=== PATIENT | male | born 1950 | race Caucasian/White ===

== ENCOUNTER 2023-08-28 09:10 | Outpatient (CLI) | payer OTHER, SELFPAY ==
--- OUTSIDE RECORDS SUMMARY | 2023-08-28 09:15 | XMS_ITS | Encounter Summary ---
Author Name [facility] Organization [facility] Address [address] [place] [address] Support Name Relationship Address Phone JASPREET STEELE Next of Kin [address] [place] [address] JASPREET STEELE Emergency Contact [address] [place] [address] Insurance Providers: All historical and current Section Date Range: From patient's date of to the date document was created. This section includes the names of all active insurance providers for the patient. Insurance Provider Type of Coverage Plan Name Start of Policy Coverage End of Policy Coverage Group Number Member ID Insurance Provider's Telephone Number Policy Joe's Name Patient's Relationship to Policy Joe [employer] [facility] (WNR) MEDICARE ADVANTAGE [facility] (R) May 12, 2021 [id number] TRAY STEELE PATIENT MEDICA MCR (WNR) MEDICARE ADVANTAGE [facility] (WNR) May 12, 2018 [id number] [phone] TRAY STEELE PATIENT MEDICARE (WNR) MEDICARE (M) PART A Jul 10, 2013 PART A [id number] [phone] TRAY STEELE PATIENT MEDICARE (WNR) MEDICARE (M) PART B Jul 10, 2013 PART B [id number] [phone] TRAY STEELE PATIENT Selected Encounter This section includes the information on record at PA for the Encounter. Date/Time Encounter Type Encounter Description Reason Pro vider Source Jun 11, 2023 10:49 AM Outpatient Encounter COMMUNITY CARE CONSULT IHE Encounter Template Text not used by [facility] Plan of Treatment: Future Appointments (+ 6 months) and Future Tests (+/- 45 days) The Plan of Treatment section includes future care activities for the patient from all VA treatmentfacilities. This section includes future appointments and future orders which are active, pending or scheduled. Future Appointments This section includes appointments that were scheduled to occur 6 months from the date of the Encounter, up to a maximum of 20 appointments. The data comes from all [facility]. Appointment Date/Time Appointment Type Appointme nt Facility Name Aug 26, 2023 07:00 AM AMBULATORY - NONE [facility] Active, Pending, and Scheduled Orders This section includes a listing of several types of active, pending, and scheduled orders, including clinic medications orders, diagnostic test orders, procedure orders and consult orders; where the start date of the order is 45 days before the date of the Encounter or 45 days after the date of theEncounter. The data comes from all [facility]. Test Date/Time Test Type Test Details Facility Name May 20, 2023 11:12 AM Consult Order COMMUNITY CARE-COLONOSCOPY [facility] Cons [facility] HELEN GARCIA Lab Results: +/- 30 days of the encounter This section includes the Chemistry and Hematology Lab Results on record with PA for the patient. Radiology Reports and Pathology Reports are provided separately, in subsequent sections. Lab Results This section contains the Chemistry/Hematology Results that were resulted 30 days before or 30 daysafter the date of the Encounter. Date/Time Source Result Type Result - Unit Interpretation Reference Range Comment May 20, 2023 11:22 AM HELEN AGRCIA HEMOGLOBIN A1C Specimen Type: BLOOD Comment: Values obtained from A1C measurements can vary. For typical A1C assays, a reported value of 7.0 could actually be between 6.7 and 7.3 if measured by a reference method. A reported value of 9.0 could actually be between 8.7 and 9.3. Ref: http://www.ngsp .org/CAPdata.as p Ordering Provider: SHERYL NORIEGA Report Released Date/Time: May 20, 2023 11:17 AM Reporting Lab: [facility] [id number] Performing Lab: [facility] [id number] HEMOGLOBIN A1C 5.3 4.0-6.0 May 20, 2023 11:22 AM HELEN GARCIA BASIC METABOLIC PANEL+MG Specimen Type: PLASMA No comment entered. Ordering Provider: SHERYL NORIEGA Report Released Date/Time: May 20, 2023 11:17 AM Reporting Lab: [facility] [id number] Performing Lab: [facility] [id number] CREATININE 1.2 0.7-1.2 UREA NITROGEN 25 8-26 GLUCOSE 100 70-100 SODIUM 134 L 136-145 POTASSIUM 4.1 3.5-5.1 CHLORIDE 101 98-107 CO2 27 22-29 CALCIUM 9.1 8.4-10.2 MAGNESIUM 2.1 1.6-2.6 ANION GAP 6 5-15 .CREAT EGFR(CKD-EPI) 63 >60 Social History: Smoking Status (Most current) and Tobacco Use (All prior to encounter date) This section includes the most current, and the historical, smoking and tobacco- related health factors from the [place] facility where the Encounter took place. Current Smoking Status This section includes the most current smoking, or tobacco-related health factor, from the PA facility where the Encounter took place. Date/Time Current Smoking Status Comment Facil kaye Nov 29, 2019 09:36 AM VA-TOBACCO NEVER USED [facility] Encounter Notes: All associated encounter notes This section contains the clinical notes associated to the Encounter. Date/Time Encounter Note(s) Provider Source Jun 11, 2023 10:49 AM NONVA NOTE: LOCAL TITLE: COMMUNITY CARE PRE-AUTH LETTER (AUTOPRINT) STANDARD TITLE: NONVA NOTE DATE OF NOTE: JUN 11, 2023@10:49 ENTRY DATE: JUN 11, 2023@10:49:31 AUTHOR: RAFAT MUÑOZ COSIGNER: URGENCY: STATUS: COMPLETED May TRAY STEELE [address] [place] [address] Dear TRAY STEELE, Your PA provider has referred you to a provider within the community for care. Your medical care for GASTROENTEROLOGY has been authorized with the community care provider listed below. DO NOT REPORT TO THE [facility] Provider info: Care has been approved for the following vendor: Office name, address, and phone number: [employer] [address] [place] [phone] Please contact the identified provider to schedule your community appointment. If you need assistance with this appointment, please call your facility community care office [facility] at [phone] during the hours of 8:30AM - 3:00PM. Please follow up with your local [facility] community care office once this is scheduled. This step is needed to ensure your referral duration is maximized and the VA has accurate referral information for billing purposes. Authorization Number: [id number] Referral Issue Date: May Expiration Date: Nov (subject to change based on first appointment) If you are unable to schedule this appointment or the appointment is no longer needed, please contact the community provider above for notification/rescheduling and then call the [facility] at [phone] during the hours of 8:30AM - 3:00PM. If you need additional care/services not mentioned above or your authorization has and additional care is needed, please contact your primary care provider for a new referral. To review all care/service(s) approved under your referral, please go to the following link: [email or web address]([email or web address]) Co-Payments: If you are required to pay a VA co-payment, you will be billed by the PA for each authorized visit that you attend. However, you are NOT REQUIRED to make co-payments to a community provider. Thank you for the opportunity to serve you. Sincerely, [facility] Community Care (VACC) /katharina/ RAFAT MUÑOZ ADVANCED MSA Signed: 06/11/2023 10:50 RAFAT MUÑOZ [facility]
--- OUTSIDE RECORDS SUMMARY | 2023-08-28 09:15 | XMS_ITS | Encounter Summary ---
Author Name [employer] of Vetera Affairs Organization [facility] Affairs Address [address] [place] [address] Support Name Relationship Address Phone JASPREET STEELE [...] Name Patient's Relationship to Policy Joe HUMANA [facility] (WNR) MEDICARE ADVANTAGE [facility] ([facility]) May 12, 2021 [id number] TRAY STEELE PATIENT MEDICA [facility] (WNR) MEDICARE ADVANTAGE [facility] (R) May 12, 2018 [id number] TRAY STEELE PATIENT MEDICARE (WNR) MEDICARE (M) PART A Jul 10, 2013 PART A [id number] [phone] TRAY STEELE PATIENT MEDICARE (WNR) MEDICARE (M) PART B Jul 10, 2013 PART B [id number] [phone] TRAY STEELE PATIENT Selected Encounter This section includes the information on record at [facility] for the Encounter. Date/Time Encounter Type Encounter Description Reason Provider Source May 20, 2023 10:30 AM OFFICE O/P EST MOD 30 MIN PRIMARY CARE/MEDICINE ICD-10-CM C18.9 Malignant neoplasm of colon, unspecified SHERYL NORIEGA Encounter Template Text not used by [facility] Assessments - Encounter Diagnoses This section includes the primary and secondary diagnoses documented for the Encounter. Date/Time Primary/Secondary Diagnosis Diagnosis Name Provider Source May 23, 2023 10:39 AM PRIMARY Malignant neoplasm of colon, unspecified SHERYL NORIEGA [facility] May 23, 2023 10:39 AM SECONDARY Allergic rhinitis, unspecified GRANDIA,SHERYL [facility] May 23, 2023 10:39 AM SECONDARY Benign prostatic hyperplasia without lower urinry tract symp GRANDIA,SHERYL [facility] May 23, 2023 10:39 AM SECONDARY Essential (primary) hypertension IASHERYL [facility] May 23, 2023 10:39 AM SECONDARY Gastro-esophageal reflux disease without esophagitis IA,SHERYL [facility] May 23, 2023 10:39 AM SECONDARY Impaired fasting glucose IA,SHERYL [facility] May 23, 2023 10:39 AM SECONDARY Rheumatoid arthritis, unspecified GRANDIA,SHERYL [facility] May 23, 2023 10:39 AM SECONDARY Sleep apnea, unspecified GRANDIA,SHERYL [facility] May 23, 2023 10:39 AM SECONDARY Unspecified hearing loss, unspecified ear IA,SHERYL [facility] May 23, 2023 10:39 AM SECONDARY Unspecified macular degeneration IA,SHERYL [facility] Plan of Treatment: Future Appointments (+ 6 months) and Future Tests (+/- 45 days) The Plan of Treatment section includes future care activities for the patient from all [facility] treatmentfacilities. This section includes future appointments and future orders which are active, pending or scheduled. Future Appointments This section includes appointments that were scheduled to occur 6 months from the date of the Encounter, up to a maximum of 20 appointments. The data comes from all [facility] treatment facilities. Appointment Date/Time Appointment Type Appointme nt Facility Name Aug 26, 2023 07:00 AM AM[facility]ULATORY - [facility] Active, Pending, and Scheduled Orders This section includes a listing of several types of active, pending, and scheduled orders, including clinic medications orders, diagnostic test orders, procedure orders and consult orders; where the start date of the order is 45 days before the date of the Encounter or 45 days after the date of theEncounter. The data comes from all [facility] treatment facilities. Test Date/Time Test Type Test Details Facility Name May 20, 2023 11:12 AM Consult Order [facility] [employer] [facility] Lab Results: +/- 30 days of the encounter This section includes the Chemistry and Hematology Lab Results on record with [facility] for the patient. Radiology Reports and Pathology Reports are provided separately, in subsequent sections. Lab Results This section contains the Chemistry/Hematology Results that were resulted 30 days before or 30 daysafter the date of the Encounter. Date/Time Source Result Type Result - Unit Interpretation Reference Range Comment May 20, 2023 11:22 AM [facility] HEMOGLOBIN A1C Specimen Type: BLOOD Comment: Values [...] May 20, 2023 11:17 AM Reporting Lab: [facility] [id number] Performing Lab: [facility] [id number] HEMOGLOBIN A1C 5.3 4.0-6.0 May 20, 2023 11:22 AM [facility] BASIC METABOLIC PANEL+MG Specimen Type: PLASMA No comment entered. Ordering Provider: SHERYL NORIEGA Report Released Date/Time: May 20, 2023 11:17 AM Reporting Lab: [facility] [id number] Performing Lab: [facility] [id number] CREATININE 1.2 0.7-1.2 UREA NITROGEN 25 8-26 GLUCOSE 100 70-100 SODIUM 134 L 136-145 POTASSIUM 4.1 3.5-5.1 CHLORIDE 101 98-107 CO2 27 22-29 CALCIUM 9.1 8.4-10.2 MAGNESIUM 2.1 1.6-2.6 ANION GAP 6 5-15 .CREAT EGFR(CKD-EPI) 63 >60 Vital Signs: All taken on the encounter date This section contains inpatient and outpatient Vital Signs collected on the date of the Encounter. Date/Time Temperature Pulse Blood Pressure Respiratory Rate SP02 Pain Height Weight Body Mass Index Source May 20, 2023 10:32 AM 97.1 F 78 /min 130/81 mm[Hg] 16 /min 96 % 0 214 lb 33 [facility] Social History: Smoking Status (Most current) and Tobacco Use (All prior to encounter date) This section includes the most current, and the historical, smoking and tobacco- related health factors from the [facility] facility where the Encounter took place. Current Smoking Status This section includes the most current smoking, or tobacco-related health factor, from the [facility] facility where the Encounter took place. Date/Time Current Smoking Status Comment Facil ity Nov 19, 2022 10:30 AM VA-TOBACCO NEVER USED [facility] Tobacco Use History This section includes a history of the smoking, or tobacco-related health factors, that were collected on or before the date of the Encounter. The data comes from the [facility] facility where the Encounter took place. Date/Time Smoking Status/Tobacco Use Comment F acility Nov 20, 2021 08:30 AM VA-TOBACCO NEVER USED [facility] Dec 05, 2020 10:30 AM VA-TOBACCO NEVER USED [facility] Encounter Notes: All associated encounter notes This section contains the clinical notes associated to the Encounter. Date/Time Encounter Note(s) Provider Source May 21, 2023 06:54 AM LETTERS: LOCAL TITLE: FOLLOW UP RESULTS LETTER STANDARD TITLE: LETTERS DATE OF NOTE: MAY 21, 2023@06:54 ENTRY DATE: MAY 21, 2023@06:54:20 AUTHOR: SHERYL NORIEGA EXP COSIGNER: URGENCY: STATUS: COMPLETED [facility] [address] [place] [address] May TRAY STEELE [address] [place] [id number] Dear : You should be receiving another letter with the results of the tests you had done at the [facility]. I have reviewed the results and labs are OK/stable. Continue current medications and cares. Follow-up as directed. If you have further questions or problems, please contact the call center at [phone] to speak with a nurse or leave me a message Sincerely, SHERYL NORIEGA PA-C PHYSICIAN METAL AND PLASTIC HEATER [facility] SHERYL NORIEGA May 20, 2023 10:52 AM PRIMARY CARE NOTE: LOCAL TITLE: [facility] PROGRESS NOTE - [facility] STANDARD TITLE: PRIMARY CARE NOTE DATE OF NOTE: MAY 20, 2023@10:52 ENTRY DATE: MAY 20, 2023@10:52:27 AUTHOR: SHERYL NORIEGA COSIGNER: URGENCY: STATUS: COMPLETED Type of Visit: FOLLOW UP VISIT Reason for Visit: 6 MONTH FOLLOW UP VISIT Non VA Providers: PCP Dr. Sameer Hernandez MD - [place] [facility] - [facility] HPI: 72 year old MALE with PMH of below medical conditions seen today for routine scheduled 6 month follow up visit and review of chronic medical conditions. Reports overall feeling well today. Denies recent illnesses or hospitalizations. Tolerating medications without adverse effects. Receives medical care with [facility] and [facility]. [employer] records reviewed in [facility]. 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 Patient stopped MTX on his own and is now taking Moringa supplement. He has not noted any significant increase in his arthritic pain upon stopping the methotrexate. He does feel as though the Moringa is helpful. He continues to do well off the MTX. Concerns: No specific complaints or new concerns voiced today. Past Medical History: Active problems - Computerized Problem List is the source for the followin. Allergic Rhinitis ([facility] [id number]) 2. Depression ([facility] [id number]) 3. Benign Prostatic Hypertrophy Without Outflow Obstruction ([facility] [id number]) 4. HTN - Hypertension ([facility] [id number]) 5. Sleep Apnea ([facility] [id number]) 6. GERD - Gastro-Esophageal Reflux Disease ([facility] [id number]) 7. Erectile dysfunction [facility] [id number]) 8. Diverticular Disease of Colon ([facility] [id number]) 9. Impaired Fasting Glucose ([facility] [id number]) 10. Hearing Loss ([facility] [id number]) 11. Actinic Keratosis ([facility] ) 12. Obesity ([facility] [id number]) 13. Carcinoma of Colon ([facility] [id number]) 14. Polymyalgia Rheumatica ([facility] [id number]) 15. RA - Rheumatoid Arthritis ([facility] [id number]) 16. Age related macular degeneration Past Surgical History: 1. Colonoscopies 2. Carpal tunnel release 3. Tonsillectomy 4. Septoplasty 5. Lumbar fusion 6. Vasectomy 7. Laproscopic sigmoid colectomy 8. 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 Normal resp rate and effort Abd: soft, NT/ND, +BS : deferred Extrem: no edema Neuro: no gross deficits Mental: Normal mood and affect, cooperative Labs: PENDING Imaging: NONE TODAY Assessment/Plan: 1. FOLLOW UP VISIT 2. HX COLON CANCER - f/u colonoscopy due 08/2023 - consult placed 3. HYPERTENSION - controlled; continue current medications 4. PRE-DIABETES - labs pending; continue lifestyle modification 5. GERD - Continue omeprazole 6. SLEEP APNEA - continue CPAP; f/u with Sleep Clinic as directed 7. RHEUMATOID ARTHRITIS - symptoms stable off MTX; labs pending 8. MACULAR DEGENERATION - Continue AREDS2; f/u with Ophthalmology as directed 9. BPH - Continue Tamsulosin 10. ALLERGIC RHINITIS - Continue Fluticasone nasal spray 11. HEARING LOSS - provided contact information for [facility] Aud[facility] clinic; he may arrange own appt Labs pending Continue current medications - no changes today Medication renewals sent Medication reconciliation completed with [employer] Encouraged healthy lifestyle choices Immunizations up to date - declines COVID vaccine today After visit summary offered Questions were answered Patient comfortable with above plan Follow up with nonVA PCP, Rheumatology, Sleep Clinic, Ophthalmology as directed RTC 6 months for annual visit or sooner as needed Health Care Maintenance Recommendations Reviewed and Up to Date. RTC in 6 MONTHS FOR ANNUAL VISIT. Total time spent with patient care including chart review/diagnostic and testing review, patient interview/examination, counseling, documentation and care coordination was 30 minutes Clinical Reminders: Medication Reconciliation: Education Evaluations *Was medication education provided for NEW medications or CHANGES to medications? (including medication name, dose, route, reason for use, and potential side effects). No new medications or medication changes during this encounter. TERATOGENIC MED & CONTRACEPTION REVIEW (Optional)... MEDICATION RECONCILIATION List Given: An updated medication list was provided to the patient/caregiver. Review Done: The medication list shown below was verified for accuracy and it includes all pending medications/active medications/all medications or discontinued within the last 90 days/all remote medications and non-VA medications. If a given category (i.e. remote meds) is not shown, that means that a patient doesn't have a medication(s) in that category. Allergies listed below were also reviewed/updated for accuracy. Allergies/ADR from [facility] may not display in CPRS. Use JLV MRT5 - Allergies/ADRs FACILITY ALLERGY/ADR -------- No Remote Allergy/ADR Data available for this patient [facility] No Known Allergies Active and Recently Outpatient Medications (including Supplies): Issue Date Status Last Fill Active Outpatient Medications Refills Expiration 1) MULTIVIT/OPHTH AREDS2/LUTE/ZEAX CAP/TAB ACTIVE Issu:11-19-22 Qty: 120 for 60 days Sig: TAKE 1 Refills: 3 Last:05-20-23 TABLET BY MOUTH TWICE A DAY - EYE Expr:11-20-23 VITAMINS Issue Date Status Last Fill Inactive Outpatient Medications Refills Expiration 1) DICLOFENAC NA 1% TOP GEL Qty: 100 for DISCONTINUED Issu:11-19-22 30 days Sig: APPLY 2 GRAMS TOPICALLY Refills: 3 Last:11-20-22 FOUR TIMES A DAY NEEDED TO AFFECTED Expr:11-20-23 AREA FOR PAIN. *USE DOSE CARD IN BOX TO MEASURE DOSE. MAX 32 GRAMS PER DAY. 2) FLUTICASONE PROP 50MCG 120D NASAL INHL DISCONTINUED Issu:11-19-22 Qty: 3 for 90 days Sig: SPRAY 2 Refills: 3 Last:11-20-22 SPRAYS IN EACH NOSTRIL EVERY DAY FOR Expr:11-20-23 ALLERGIES 3) HCTZ 25/LISINOPRIL 20MG TAB Qty: 90 for DISCONTINUED Issu:11-19-22 90 days Sig: TAKE 1 TABLET BY MOUTH Refills: 0 Last:11-20-22 EVERY DAY FOR BLOOD PRESSURE Expr:02-17-23 4) OMEPRAZOLE 20MG EC CAP Qty: 90 for 90 DISCONTINUED Issu:11-19-22 days Sig: TAKE ONE CAPSULE BY MOUTH Refills: 3 Last:11-20-22 EVERY DAY NEEDED FOR STOMACH ACID Expr:11-20-23 5) TAMSULOSIN HCL 0.4MG CAP Qty: 90 for 90 DISCONTINUED Issu:11-19-22 days Sig: TAKE ONE CAPSULE BY MOUTH Refills: 3 Last:11-20-22 EVERY EVENING FOR PROSTATE Expr:11-20-23 Start Date Active Non-VA Medications Refills Expiration 1) Non-VA CALCIUM 250MG/VITAMIN D 125 UNT ACTIVE TAB Si TABLET MOUTH EVERY DAY 2) Non-VA CHOLECALCIFEROL TAB Si,000 ACTIVE UNITS MOUTH DAILY 3) Non-VA MULTIVITAMIN/MINERALS CAP/TAB ACTIVE Si TABLET MOUTH EVERY DAY 4) Non-VA NON VA MED NOT LISTED ACTIVE MISCELLANEOUS Sig: MIRINGA 6000 MG MOUTH TWICE A DAY 5) Non-VA POTASSIUM CHLORIDE TAB,SA Sig: ACTIVE 99 MG MOUTH EVERY DAY 11 Total Medications /es/ SHERYL NORIEGA PA-C PHYSICIAN [employer] PLASTIC HEATER [facility] Signed: 05/23/2023 10:39 [facility] May 20, 2023 10:44 AM PRIMARY CARE NURSI NG NOTE: LOCAL TITLE: [facility] NURSING PROGRESS NOTE STANDARD TITLE: PRIMARY CARE NURSING NOTE DATE OF NOTE: MAY 20, 2023@10:44 ENTRY DATE: MAY 20, 2023@10:44:54 AUTHOR: SEVERIANO ROSENBERG EXP COSIGNER: URGENCY: STATUS: COMPLETED TYPE OF VISIT: Appointment Check In Type of appointment: In-person appointment REASON FOR VISIT: 6 month f/u ALLERGIES: Patient has answered NKA VITAL SIGNS: Blood Pressure: 130/81 (05/20/2023 10:32) Pulse: 78 (05/20/2023 10:32) Respiration: 16 (05/20/2023 10:32) Temperature: 97.1 F [36.2 C] (05/20/2023 10:32) Weight: 214 lb [97.07 kg] (05/20/2023 10:32) Height: 67.323 in [171.0 cm] (11/19/2022 10:28) BMI: 33.3 O2 Sat: 96% (05/20/2023 10:32) Pain: 0 (05/20/2023 10:32) PAIN SCREEN: Patient is not having significant pain that they wish to discuss with their provider today. MEDICATION Active Outpatient Medications (including Supplies): DICLOFENAC NA 1% TOP GEL APPLY 2 GRAMS TOPICALLY FOUR ACTIVE TIMES A DAY NEEDED TO AFFECTED AREA FOR PAIN. *USE DOSE CARD IN BOX TO MEASURE DOSE. MAX 32 GRAMS PER DAY. FLUTICASONE PROP 50MCG 120D NASAL INHL SPRAY 2 SPRAYS IN ACTIVE EACH NOSTRIL EVERY DAY FOR ALLERGIES MULTIVIT/OPHTH AREDS2/LUTE/ZEAX CAP/TAB TAKE 1 TABLET BY ACTIVE MOUTH TWICE A DAY - EYE VITAMINS OMEPRAZOLE 20MG EC CAP TAKE ONE CAPSULE BY MOUTH EVERY DAY ACTIVE NEEDED FOR STOMACH ACID TAMSULOSIN HCL 0.4MG CAP TAKE ONE CAPSULE BY MOUTH EVERY ACTIVE EVENING FOR PROSTATE Non-VA CALCIUM 250MG/VITAMIN D 125 UNT TAB 1 TABLET MOUTH ACTIVE EVERY DAY Non-VA CHOLECALCIFEROL TAB 5,000 UNITS MOUTH DAILY ACTIVE Non-VA MULTIVITAMIN/MINERALS CAP/TAB 1 TABLET MOUTH EVERY ACTIVE DAY Non-VA NON VA MED NOT LISTED MISCELLANEOUS MIRINGA 6000 MG ACTIVE MOUTH TWICE A DAY Non-VA POTASSIUM CHLORIDE TAB,SA 99 MG MOUTH EVERY DAY ACTIVE Depression Screening: Perform PHQ-2 A PHQ-2 screen was performed. The score was 0 which is a negative screen for depression. Over the past two weeks, how often have you been bothered by the following problems? 1. Little interest or pleasure in doing things Not at all 2. Feeling down, depressed, or hopeless Not at all Homelessness/Food Insecurity Screen: In the past 2 months, have you been living in stable housing that you own, rent, or stay in as part of a household? Yes - Living in stable housing. Are you worried or concerned that in the next 2 months you may NOT have stable housing that you own, rent, or stay in as part of a household? No - Not worried about housing near future The reports the following: Within the past 12 months, you worried whether your food would run out before you got money to buy more. Never true Within the past 12 months, the food you bought just didn't last and you didn't have money to get more. Never true Food Insecurity Resources COVID-19 Immunization: Refused Pfizer Monovalent COVID-19 vaccine Immunization: COVID-19 (PFIZER), MRNA, LNP-S, PF, BARBRA-SUCROSE, 30 MCG/0.3 ML (AGES 12+ YEARS) Refusal Reason: PATIENT DECISION Patient refuses all immunization(s) in the COVID-19 group Date Documented: 05/20/23 10:47 /katharina/ SEVERIANO ROSENBERG [employer]AR SALES REPRESENTATIVE AND ASSESSORPriya [facility] Signed: 05/20/2023 10:47 SEVERIANO ROSENBERG [facility]
--- OUTSIDE RECORDS SUMMARY | 2023-08-28 09:15 | XMS_ITS | Clinical Summary ---
Author Name Unknown Organization [facility] Address [place], [place] [address] Care Team Providers Care Biomedical Engineer Name Role Phone Sameer Hernandez MD Primary Care Provider Allergies No known active allergies Medications Medication Sig Dispensed Refills Start Date End Date Status Cholecalciferol, Vitamin D3, (VITAMIN D) 5,000 unit Tab Take by mouth once daily. 0 02/26/2011 Active fluticasone (50 mcg per actuation) nasal solution (FLONASE)Indications: Allergy, sequela USE 2 SPRAYS IN EACH NOSTRIL ONE TIME DAILY 48 g 12 11/15/2020 Active vit A/vit C/vit E/zinc/copper (OCUVITE PRESERVISION ORAL) Take by mouth. Active multivitamin (MVI) tablet Take 1 Tablet by mouth once daily. Active methotrexate (RHEUMATREX) 2.5 mg tablet TAKE 10 TABLETS BY MOUTH ONCE A WEEK (TAKE 5 TABLETS IN THE MORNING AND 5 IN THE EVENING) 10/25/2021 Active omeprazole (PRILOSEC) 20 mg Delayed-Release capsuleIndications:Ch ronic GERD TAKE 1 CAPSULE EVERY DAY BEFORE A MEAL 90 Capsule 02/17/2023 Active lisinopril-hydrochlor othiazide, 20-25 mg, (PRINZIDE, ZESTORETIC) 20-25 mg per tabletIndications:Hyp ertension TAKE 1 TABLET EVERY DAY 90 Tablet 06/26/2023 Active tamsulosin (FLOMAX) 0.4 mg capsuleIndications:BP H with urinary obstruction TAKE 1 CAPSULE ONE TIME DAILY AFTER A MEAL 90 Capsule 06/26/2023 Active Active Problems Problem Noted Date Diagnosed Date PMR (polymyalgia rheumatica) 09/07/2019 SHIRA 03/19/2011 AHI-59 03/25/2011 Diverticulosis of colon (without mention of hemo rrhage) 02/06/2010 Overview: Colonoscopy 01/2010 diverticulosis repeat in 10 years Unspecified essential hypertension 09/07/2009 Depressive disorder, not elsewhere classified Hypertrophy of prostate with out urinary obstruction and other lower urinary tract symptoms (LUTS) 03/13/2007 Allergic rhinitis, cause unspecified GERD (gastroesophageal reflux disease) Overview: Omep works at 40mg, fails at 20mg. Prediabetes Resolved Problems Problem Noted Date Diagnosed Date Resolved Date Impaired fasting glucose 04/16/201311/2020 Allergic rhinitis, cause unspecified 03/13/2007 11/15/2020 Impotence of organic origin 03/13/2007 02/20/2022 Encounters Date Type Department Care Team Description 06/27/2023 Telephone [facility] [address] [place] [address] Timoteo Quintana MD Appointment 06/26/2023 Telephone [facility] [address] [place] [address] Sameer Hernandez MD Screening 06/25/2023 Refill [facility] [address] [place] [address] Sameer Hernandez MD Refill Request (Lisinopril-hydrochloro thiazide (20-25 Mg), Tamsulosin) from Last 3 Months Immunizations Name Administration Dates Next Due Influenza, High-dose Inactivated 06/24/2014 Influenza, IIV3 (Age 6-35 mos) 03/01/2009 Influenza, IIV3 (Age >=3 years) 04/16/20 13,03/10/2012,02/26/2011,2009,03/23/2008,03/13/2007,03/27/2006 Influenza, Inactivated AIIV4 (Age 65+ Years) Preserv Free 02/20/2022 Influenza, Inactivated IIV3 (Age 65+ Years) Preserv Free 02/10/2018,02/14/2017 Pneumococcal Poly,23-Valent (Pneumovax) 08/25/2015 Pneumococcal conj 13-Valent (Prevnar 13) 06/24/2014 Td (Age >=7 Years) 06/24/2003 Tdap 04/12/2018,03/10/2012 Tuberculin (PPD) 11/08/2014,10/19/2014 Zoster (Zostavax-ZVL, live) 04/14/2012 Family History Medical History Relation Name Comments Cancer Father basal cell Cancer-prostate Father Cancer Mother basal cell Cancer-prostate Paternal Uncle 1 Cancer-prostate Paternal Uncle 2 Anesthesia Problem No Family History Cancer-colon No Family History Diabetes No Family History Heart Disease No Family History Relation Name Status Comments Father Mother Alive Paternal Uncle 1 Paternal Uncle 2 Social History Tobacco Use Types Packs/Day Years Used Date Smoking Tobacco: Never Smokeless Tobacco: Never Tobacco Cessation:Counseling Given: Yes Alcohol Use Standard Drinks/Week Comments No 0 (1 standard drink = 0.6 oz pur e alcohol) PHQ-2 Answer Date Recorded PHQ-2 TOTAL SCORE 2 02/20/2022 Social Connections Answer Date Recorded Frequency of Communication with Friends and Fami ly Not on file 05/02/2021 Financial Resource Strain Answer Date R ecorded Difficulty of Paying Living Expenses Not on file 05/02/2021 Difficulty of Paying Living Expenses Not on file 05/02/2021 Sex and Gender Information Value Date Recorded Sex Assigned at Not on file Gender Identity Not on file Sexual Orientation Not on file Obstetrics History Last Filed Vital Signs Vital Sign Reading Time Taken Comments Blood Pressure 127/75 03/06/2022 1:30 PM CDT Pulse 62 03/06/2022 1:30 PM CDT Temperature 36.1 ??C (97 ??F) 02/14/2021 12: 57 PM CDT Respiratory Rate 18 02/14/2021 3:15 PM CDT Oxygen Saturation 98% 03/06/2022 1:30 PM CDT Inhaled Oxygen Concentration - - Weight 98.7 kg (217 lb 11.2 oz) 03/06/2022 1:30 PM CDT Height 169.2 cm (5' 6.61) 02/20/2022 9:56 AM CD T Body Mass Index 34.49 02/20/2022 9:56 AM CDT Plan of Treatment Health Maintenance Due Date Last Done Comments COVID-19 vaccine series (#1) 1955 Fecal testing non-DNA (FIT,FOBT,iFOBT) for age 45-75 02/27/2012 02/26/2011 Zoster (shingles) series for age 50+ (1 of 2) 06/09/2012 04/14/2012 BMI (ht and wt on same day) for age 18+ 02/20/2023 02/20/2022, 11/15/2020, 11/16/2018, Additional history exists Depression screening for age 12+ 02/20/2023 02/20/2022, 11/15/2020, 11/15/2020, Additional history exists Medicare Wellness for age 65+ 02/21/2023, 11/15/2020, 11/16/2018, Additional history exists Influenza for age 65+ 01/11/2024 02/20/2022 , 02/10/2018, 02/14/2017, Additional history exists Lipids for age 45-75 11/15/2025 11/15/2020, 08/18/2015, 03/04/2012, Additional history exists Tetanus booster 04/12/2028 04/12/2018, 02/11, 06/24/2003 Pneumococcal series for age 65+ Completed 6, 06/24/2014 Hepatitis C screening for ag e 18-79 Completed 10/13/2017 Tdap Completed 04/12/2018, 03/10/2012 Procedures Procedure Name Priority Date/Time Associated Diagnosis Comments LIPID PANEL W REFLEX MEASURED LDL Routine 11/15/2020 9:50 AM CDT Lipid screening ANTI HCV Routine 10/13/2017 8:01 AM CDT Need for hepatitis C screening test OCCULT BLOOD IFOBT STOOL Routine 02/26/2011 11:12 AM CDT Routine general medical examination at a health care facility from Last 3 Months or Most Recently Relevant to Health Maintenance Results * LIPID PANEL W REFLEX MEASURED LDL (11/15/2020 9:50 AM CDT) CHOLESTEROL,TOTAL 169 100 - 199 mg/dL 11/15/2020 5:52 PM CDT [facility] TRIGLYCERIDES 90 <150 mg/dL 11/15/2020 5:52 PM CDT [facility] HDL CHOLESTEROL 56 >40 mg/dL 5:52 PM CDT [facility] NON-HDL CHOLESTEROL 113 <145 mg/dl 11/15/2020 5:52 PM CDT [facility] CHOL/HDL RATIO 3.02 <4.50 11/15/2020 5:52 PM CDT [facility] LDL CHOLESTEROL 95 <=130 mg/dL 11/15/2020 5:52 PM CDT [facility] VLDL CHOLESTEROL 18 mg/dL 11/16/19 5:52 PM CDT [facility] PROVIDER ORDERED STATUS RANDOM 11/15/2020 5:52 PM CDT [facility] Blood BLOOD SPECIMEN / Unknown Venipuncture / Unknown 11/15/2020 9:50 AM CDT 11/15/2020 9:50 AM CDT Sameer Hernandez MD CHEMISTRY [facility] [address] [place] [address], * ANTI HCV (10/13/2017 8:01 AM CDT) HEPATITIS C ANTIBODY Non-React jeff Non-React jeff 10/13/2017 2:12 PM CDT [facility] Comment:Antibodies to HCV no t detected; does not exclude the possibility of exposure to HCV. Blood BLOOD SPECIMEN / Unknown Venipuncture / Unknown 10/13/2017 8:01 AM CDT 10/13/2017 8:02 AM CDT Sameer Hernandez MD SEND OUTS [facility] [address] [place] [address], * OCCULT BLOOD IFOBT STOOL (02/26/2011 11:12 AM CDT) STOOL BLOOD ,IFOBT Negative (Negative) [facility] Stool specimen (specimen) STOOL SPECIMEN / Unknown 02/26/2011 11:12 AM CDT 02/26/2011 11:11 AM CDT Sameer Hernandez MD LABORATORY [facility] [address] [place] [address] from Last 3 Months or Most Recently Relevant to Health Maintenance Advance Directives * Full Code (Latest Code Status on File) Date Activated Date Inactivated Comments 02/14/2021 7:24 AM 02/14/2021 5:52 PM Question Answer Comments Code Status Discussion: Not Discussed Care Teams Biomedical Engineer Relationship Specialty Start Date End Date Sameer Hernandez MD [address] [place] [address] PCP - General 03/13/06
--- OUTSIDE RECORDS SUMMARY | 2023-08-28 09:15 | XMS_ITS | Referral Summary ---
Author Name Unknown Organization [facility] Address [address] [place] [address] Care Team Providers Care Supervisor Abattoir Name Role Phone Elsewhere, Pcp Primary Care Provider Unavailabl e Source Comments Patient records contain information from all sites at [facility]. For routine questions regarding patient records, call [phone] during business hours, M-F 8:00 AM - 5:00 PM Central Time. Record requests for emergency care only can be directed to [phone] at any time.[facility] Allergies No known active allergies Medications Medication Sig Dispensed Refills Start Date End Date Status tamsulosin (FLOMAX) 0.4 mg 24 hr capsule Take 0.4 mg by mouth daily. Active fluticasone (FLONASE) 50 mcg/actuation nasal spray Administer 2 sprays into each nostril daily. Active omeprazole (PriLOSEC) [address] capsule Take 20 mg by mouth every morning before breakfast. As needed Active lisinopril-hydroCHLO ROthiazide (PRINZIDE,ZESTORETIC ) 20-25 mg per tablet Take 1 tablet by mouth daily. Active methotrexate solution 6 tablets weekly on 3 tabs in am and 3 tabs in afternoon Active miscellaneous medical supply [facility] CPAP machine for home use at pressure: 5-15 , Heated humidifier x 1, Humidifier chamber x 1 02/10/2018 Active cholecalciferol (VITAMIN D3) 125 mcg (5,000 Unit) tablet Take by mouth daily. 02/26/2011 Active vit C,Z-Oe-feddo-lutein- zeaxan (AREDS 2) 250-90-40-1 mg per capsule Take by mouth. Active multivitamin tablet Take 1 tablet by mouth daily. Active POTASSIUM CHLORIDE ORAL Take 100 mg by mouth 2 (two) times a day. Pt states he takes 1 tablet in the morning and 4 tablets at night Active UNABLE TO FIND Take 6,000 each by mouth 2 (two) times a day. Moringa supplement. Pt states he takes 6000mg BID Active Active Problems Problem Noted Date Diagnosed Date Fracture Middle Finger Dista l Phalanx Displaced Open Initial Left 04/20/2018 Fracture Index Finger Distal Phalanx Nondisplaced Open Initial Left 04/20/2018 Hypertension NOS Gastroesophageal Reflux Disease Apnea Sleep Obstructive Immunizations Name Administration Dates Next Due HZV (ZOSTAVAX) 04/14/2012 Influenza (IM) Preservative Free 02/26/2011,01/10,03/01/2009 Influenza TIV (IM) 02/10/2018, 7,04/16/2013,2011,02/26/2011,01/23/2010,03/23/2008,1 05/13/2006,03/27/2006 Influenza, Seasonal, Injectable 04/16/20 13,03/10/2012,03/13/2007,2005 PCV13 06/24/2014 PPD Test 11/08/2014,10/19/2014 PPSV23(Discontinued) 08/25/2015 Td (Adult), adsorbed 06/24/2003 Tdap 04/12/2018,03/10/2012 influenza high dose (65 year s or older) (PF) 06/24/2014 Social History Tobacco Use Types Packs/Day Years Used Date Smoking Tobacco: Never Smokeless Tobacco: Never Alcohol Use Standard Drinks/Week Comments No 0 (1 standard drink = 0.6 oz pur e alcohol) Social Connection and Isolat ion Panel [NHANES] Answer Date Recorded In a typical week, how many times do you talk on the phone with family, friends, or neighbors? More than three times a week 12/20/2020 How often do you get togethe r with friends or relatives? Twice a week 12/20/2020 How often do you attend chur or jainism services? More than 4 times per year 12/20/2020 Do you belong to any clubs o r organizations such as mu-ism groups, unions, fraternal or athletic groups, or school groups? Yes 12/20/2020 How often do you attend meet ings of the clubs or organizations you belong to? 1 to 4 times per year 12/20/2020 Are you , , di vorced, , never , or living with a partner? 12/20/2020 AUDIT-C Answer Date Recorded Q1: How often do you have a drink containing alc ohol? Never 12/20/2020 Average Number of Drinks Not on file 021 Frequency of Binge Drinking Not on file 12/10 Overall Financial Resource Strain (CARDIA) Answe r Date Recorded How hard is it for you to pa y for the very basics like food, housing, medical care, and heating? Not very hard 12/20/2020 PHQ-2 Answer Date Recorded PHQ-2 Score 0 02/08/2021 [facility] - Occupational Stress Questionnaire Answer Date Recorded Do you feel stress - tense, restless, nervous, or anxious, or unable to sleep at night because your mind is troubled all the time - these days? Only a little 12/20/2020 Exercise Vital Sign Answer Date Recorde d On average, how many days pe r week do you engage in moderate to strenuous exercise (like a brisk walk)? 1 day 12/20/2020 On average, how many minutes do you engage in exercise at this level? 20 min 12/20/2020 Hunger Vital Sign Answer Date Recorded Within the past 12 months, y ou worried that your food would run out before you got the money to buy more. Never true 12/21/19 21 Within the past 12 months, t he food you bought just didn't last and you didn't have money to get more. Never true 12/20/2020 PRAPARE - Transportation Answer Date Re corded In the past 12 months, has l ack of transportation kept you from medical appointments or from getting medications? No 12/10 In the past 12 months, has l ack of transportation kept you from meetings, work, or from getting things needed for daily living? No 12/20/2020 Housing Stability Vital Sign Answer Roberto e Recorded In the last 12 months, was t here a time when you were not able to pay the mortgage or rent on time? No 12/20/2020 In the last 12 months, how many places have you lived? 1 12/20/2020 In the last 12 months, was t here a time when you did not have a steady place to sleep or slept in a penitentiary (including now)? No 12/20/2020 Nutrition Answer Date Recorded Nutrition: EVOO Fat Source No 12/20 On average, how many serving s of fruits and vegetables do you eat per day (serving size is equal to 1 cup or approximately the size of a tennis ball)? 0-1 12/20/2020 Dental Answer Date Recorded Dental: Regular Dentist Yes 05/28/19 Employment Answer Date Recorded Employment status Retired 12/20/2020 Education Answer Date Recorded What is the highest level of school you have completed or the highest degree you have received? Master's degree (e.g., MA, MS, Vadim, MEd, PUG MILL OPERATOR, DES) 12/20/2020 Sex and Gender Information Value Date Recorded Sex Assigned at Male 04/20/2018 1:55 PM CERTIFIED CONTROL SYSTEMS TECHNICIAN Gender Identity Male 04/20/2018 1:55 PM CERTIFIED CONTROL SYSTEMS TECHNICIAN Sexual Orientation Straight 04/20/2018 1: 55 PM CERTIFIED CONTROL SYSTEMS TECHNICIAN Last Filed Vital Signs Vital Sign Reading Time Taken Comments Blood Pressure 109/66 12/20/2022 11:39 AM CDT Pulse 62 12/20/2022 11:39 AM CDT Temperature 36.7 ??C (98.1 ??F) 12/20/2022 9:40 AM CD T Respiratory Rate 14 12/20/2022 11:3 9 AM CDT Oxygen Saturation 97% 12/20/2022 11: 39 AM CDT Inhaled Oxygen Concentration - - Weight 96.6 kg (212 lb 15.4 oz) 12/20/2022 9:20 AM CDT Height 170.5 cm (5' 7.13) 12/20/2022 9:20 AM CD T Body Mass Index 33.23 12/20/2022 9:20 AM CDT Plan of Treatment Not on file Medical Devices Implanted Type Area Benefits Specialist Recruiter Device Identifier Shelf Expiration Date Model / Serial / Lot Hardware E.G. Pins/Screws/R ods-05/24/2008 Implanted: by Immanuel Irwin M.D. (Quantity not on file) Hardware e.g. pins/screws/ rods Spine Lumbar Description:L3, L4 titanium screws and 2 rods Procedures Procedure Name Priority Date/Time Associated Diagnosis Comments EXTI CREATININE WITH EGFR, S/P Routine 08/14/2022 11:45 AM CDT EXTI BASIC METABOLIC PANEL, S/P Routine 02/20/2022 10:[address] ABDOMEN PELVIS WITH IV CONTRAST RAD - Semiurgent (Fast; most ED patients; some inpatients) 12/20/2020 7:50 AM CDT Hematuria from Last 3 Months or Most Recently Relevant to Health Maintenance Results * CT Abdomen Pelvis with IV Contrast (12/20/2020 7:50 AM CDT) Anatomical Region Laterality Modality Abdomen, Pelvis, Abdominal R ST LOS, Abdominal ARZ LOS, Abdominal FLA LOS N/A Computed Tomography 12/20/2020 7:59 AM CDT Impressions 12/20/2020 8:02 AM CDT Marked superficial wall thickening of the urinary bladder with adjacent inflammatory stranding. Findings concerning for acute cystitis. Narrative 12/20/2020 8:02 AM CDT EXAM: CT ABDOMEN PELVIS WITH IV CONTRAST COMPARISON: None FINDINGS: Marked circumferential wall thickening of the urinary bladder with adjacent inflammatory stranding. No obstructing nephroureterolithiasis. Scattered urinary bladder diverticula suggestive of chronic bladder outlet obstruction. The kidneys are unremarkable. Small hepatic cysts or hemangiomas. Calcified splenic granulomas. The liver, spleen, pancreas and adrenal glands are unremarkable. Scattered colonic diverticulosis. Normal caliber large and small bowel. Dependent atelectasis in both lung bases. Calcified granuloma right middle lobe. Scattered calcified atherosclerotic disease. Postoperative changes of L3-4 posterior instrumented fusion with decompressive laminectomy at L4 and L5. Scattered degenerative disc disease throughout the lumbar spine. Severe spinal canal stenosis bilaterally at L2-3. Procedure Note Luis Enrique Veliz M.D. - 12/20/2020 EXAM: CT ABDOMEN PELVIS WITH IV CONTRAST COMPARISON: None FINDINGS: Marked circumferential wall thickening of the urinary bladderwith adjacent inflammatory stranding. No obstructing nephroureterolithiasis. Scattered urinary bladder diverticula suggestive of chronic bladderoutlet obstruction. The kidneys are unremarkable. Small hepatic cysts or hemangiomas. Calcified splenic granulomas. Theliver, spleen, pancreas and adrenal glands are unremarkable. Scattered colonic diverticulosis. Normal caliber large and small bowel. Dependentatelectasis in both lung bases. Calcified granuloma right middle lobe. Scatteredcalcified atherosclerotic disease. Postoperative changes of L3-4 posteriorinstrumented fusion with decompressive laminectomy at L4 and L5. Scattered degenerativedisc disease throughout the lumbar spine. Severe spinal canal stenosisbilaterally at L2-3. IMPRESSION: Marked superficial wall thickening of the urinary bladder with adjacent inflammatory stranding. Findings concerning for acute cystitis. Mayco Solitario M.D. IMG CT PROCEDURES from Last 3 Months or Most Recently Relevant to Health Maintenance Additional Health Concerns Infection Onset Date Last Indicated Protective Environment 09/19/2022 3 Care Teams Supervisor Abattoir Relationship Specialty Start Date End Date Elsewhere, Pcp PCP - General Internal Medicine 03/04/22
--- OUTSIDE RECORDS SUMMARY | 2023-08-28 09:15 | XMS_ITS | Clinical Summary ---
Author Name Unknown Organization [facility] Address [address] [place] [address] Care Team Providers Care Supervisor Hanging And Trimming Name Role Phone Elsewhere, Pcp Primary Care Provider Unavailabl e Source Comments Patient records contain information from all sites at [facility]. For routine questions regarding patient records, call [phone] during business hours, M-F 8:00 AM - 5:00 PM Central Time. Record requests for emergency care only can be directed to [phone] at any time.[facility] Allergies No known active allergies Medications Medication [...] tabs in afternoon Active miscellaneous medical supply [facility] CPAP machine for home use at pressure: 5-15 , Heated humidifier x 1, Humidifier chamber x 1 02/10/2018 Active cholecalciferol (VITAMIN D3) 125 mcg (5,000 Unit) tablet Take by mouth daily. 02/26/2011 Active vit C,X-Kk-yebfx-lutein- zeaxan (AREDS 2) 250-90-40-1 mg per capsule [...] How often do you attend chur or jewish services? More than 4 times per year 12/20/2020 Do you belong to any clubs o r organizations such as taoism groups, unions, fraternal or athletic groups, or [...] Answer Date Recorded PHQ-2 Score 0 02/08/2021 [facility] - Occupational Stress [...] place to sleep or slept in a nursing home (including now)? No 12/20/2020 Nutrition Answer Date [...] Master's degree (e.g., MA, MS, Vadim, MEd, ECONOMIC HISTORY TEACHER, DES) 12/20/2020 Sex and Gender Information Value Date Recorded Sex Assigned at Male 04/20/2018 1:55 PM CRM MARKETING ANALYST Gender Identity Male 04/20/2018 1:55 PM CRM MARKETING ANALYST Sexual Orientation Straight 04/20/2018 1: 55 PM CRM MARKETING ANALYST Last Filed Vital Signs Vital Sign Reading [...] 12/20/2022 9:20 AM CDT Plan of Treatment Health Maintenance Due Date Last Done Comments CT Colonography 1948 Cologuard 1950 FIT 1950 Hepatitis C Screening 1950 Office Visit for Blood Pressure Check / Re-check 1950 COVID-19 Vaccine (#1) 1955 Zoster Vaccines (1 of 2) 06/09/2012 04/14/2012 Potassium Level 02/20/2023 02/20/2022, 12/10, 11/15/2020, Additional history exists Sodium Level 02/20/2023 02/20/2022, 12/10, 11/15/2020, Additional history exists Depression Screening (Annual PHQ-2) 05/12/2023 Fall Risk Screen (Annual) 05/12/2023 Creatinine Level (Kidney Function Test) 08/15/2023 08/14/2022, 05/10/2022, 02/20/2022, Additional history exists Fasting Glucose for Diabetes Screening 02/20/2025 02/20/2022, 12/20/2020, 11/15/2020, Additional history exists DTaP,Tdap,and Td Vaccines (3 - Td or Tdap) 04/12/2028 04/12/2018, 03/10/2012, 06/24/2003 Colonoscopy 10/04/2030 10/04/2020 (Perf ormed elsewhere) Colorectal Cancer Screening 10/04/2030 Pneumococcal vaccine (65+ years) Completed 08/25/2015, 06/24/2014 Abdominal Aortic Aneurysm (AAA) Screen Discontinued 12/20/2020, 12/20/2020, 12/20/2020, Additional history exists Influenza Vaccine Completed 02/13/2023, , 02/10/2018, Additional history exists HPV Vaccines Aged Out No longer eligi ble based on patient's age to complete this topic Medical Devices Implanted Type Area Fast Food Cashier Device Identifier Shelf Expiration Date Model / [...] Protective Environment 09/19/2022 3 Care Teams Supervisor Hanging And Trimming Relationship Specialty Start Date End Date Elsewhere, Pcp PCP - General Internal Medicine 03/04/22
--- OUTSIDE RECORDS SUMMARY | 2023-08-28 09:15 | XMS_ITS | Continuity of Care Document ---
Author Name [facility] Organization [facility] Care Team Providers Care Supervisor Housecleaner Name Role Phone [facility] Unavailable Unavailable Problems Combined list of problems from Department of Defense and Veterans Affairs facilities. It does not include entries that were removed or entered in error. Problem Status Onset Date Problem Type Date of Resolution Comments Source Actinic Keratosis ([facility] 903832856) Active Condition [facility] Age related macular degeneration Active Condition [facility] Allergic Rhinitis ([facility] 99740040) Active Condition [facility] Benign Prostatic Hypertrophy Without Outflow Obstruction ([facility] 654526528) Active Condition [facility] Carcinoma of Colon ([facility] 983126517) Active Condition [facility] Depression ([facility] 39237219) Active Condition [facility] Diverticular Disease of Colon ([facility] 993463499) Active Condition [facility] Erectile dysfunction ([facility] 212941382) Active Condition [facility] GERD - Gastro-Esophageal Reflux Disease ([facility] 284776492) Active Condition [facility] Hearing Loss ([facility] 34163243) Active Condition [facility] HTN - Hypertension ([facility] 08391236) Active Condition [facility] Impaired Fasting Glucose ([facility] 462973112) Active Condition [facility] Obesity ([facility] 474457290) Active Condition [facility] Polymyalgia Rheumatica ([facility] 78437684) Active Condition [facility] RA - Rheumatoid Arthritis ([facility] 19730726) Active Condition [facility] Sleep Apnea ([facility] 86734614) Active Condition [facility] Diagnosis: ICD-10-CM C18.9 Malignant neoplasm of colon, unspecified Active Diagnosis [facility] Diagnosis: ICD-10-CM Z46.1 Encounter for fitting and adjustment of hearing aid Active Diagnosis [facility] Diagnosis: ICD-10-CM Z23 Encounter for immunization Active Diagnosis [facility] Diagnosis: ICD-10-CM M06.9 Rheumatoid arthritis, unspecified Active Diagnosis [facility] Medications Combined list of outpatient medications from Department of Defense and Veterans Affairs facilities.Medications provided include 1) outpatient medications from the last 15 months, and 2) patient-reported medications. Medication Details Route Status Patient Instructions Prescription Expires Prescription Number Last Dispense Date Ordering Provider Order Date Order Qty Source CALCIUM 250MG/VITAM IN D 125UNT TAB TAKE ONE TABLET BY MOUTH EVERY DAY ORALLY ACTIVE Kevin NORIEGA 2022 [facility] CHOLECALCIF DANICA TAB TAKE 5,000 UNITS BY MOUTH DAILY ORALLY ACTIVE Kevin NORIEGA 2019 [facility] DICLOFENAC NA 1% GEL,TOP APPLY 2 GRAMS TOPICALL Y FOUR TIMES A DAY NEEDED TO AFFECTED AREA FOR PAIN. *USE DOSE CARD IN BOX TO MEASURE DOSE. MAX 32 GRAMS PER DAY. TOPICA LLY DISCONT INUED 11/20/2023 [id number] Kevin NORIEGA 2022 100 [facility] FLUTICASONE PROPIONATE 50MCG/SPRAY SOLN,NASAL, 16GM SPRAY 2 SPRAYS IN EACH NOSTRIL EVERY DAY FOR ALLERGIE S NASAL DISCONT INUED 11/20/2023 [id number] Kevin NORIEGA 2022 3 [facility] HYDROCHLORO THIAZIDE 25MG/LISINO PRIL 20MG TAB TAKE 1 TABLET BY MOUTH EVERY DAY FOR BLOOD PRESSURE ORALLY DISCONT INUED 02/17/2023 [id number] Kevin NORIEGA 2022 90 [facility] MULTIVIT/OP HTH AREDS2/LUTE IN/ZEAXANTH IN CAP/TAB TAKE 1 TABLET BY MOUTH TWICE A DAY - EYE VITAMINS ORALLY ACTIVE 11/20/2023 [id number] 4 Kevin NORIEGA 2022 120 [facility] MULTIVITAMI NS W/MINERALS CAP/TAB TAKE ONE TABLET BY MOUTH EVERY DAY ORALLY ACTIVE Kevin NORIEGA 2022 [facility] NON VA MED NOT LISTED MISCELLANEO US USE MIRINGA 6000 MG MOUTH TWICE A DAY ORALLY ACTIVE Kevin NORIEGA M 2022 [facility] OMEPRAZOLE 20MG CAP,EC TAKE ONE CAPSULE BY MOUTH EVERY DAY NEEDED FOR STOMACH ACID ORALLY DISCONT [facility] 11/20/2023 [id number] Kevin NORIEGA ONJENNIFER M 2022 90 [facility] POTASSIUM CHLORIDE TAB,SA TAKE 99 MG BY MOUTH EVERY DAY ORALLY ACTIVE Kevin NORIEGA ONOLIVEE M 2022 [facility] TAMSULOSIN HCL 0.4MG CAP TAKE ONE CAPSULE BY MOUTH EVERY EVENING FOR PROSTATE ORALLY DISCONT [facility] 11/20/2023 [id number] 3 Kevin NORIEGA M 2022 90 [facility] Immunizations Combined list of available immunizations from the Department of Defense and Veterans Affairs facilities. Immunization Series Date Given Administered By Site Reaction Lot Number CVX Code Drug Material Mover Status Comments Source INFLUENZA, HIGH-DOSE, QUADRIVALENT 2022 RICHIE DO LEFT DELTO ID [id number] A 197 complet ed [facility] INFLUENZA VACCINE, QUADRIVALENT, ADJUVANTED [address] [facility] INFLUENZA, INJECTABLE, QUADRIVALENT, PRESERVATIVE FREE 2020 150 complet ed [facility] ZOSTER RECOMBINANT 2 2020 187 complet ed [facility] ZOSTER RECOMBINANT 1 2020 187 complet ed [facility] INFLUENZA, SEASONAL, INJECTABLE, PRESERVATIVE FREE [address] [facility] TDAP [address] [facility] INFLUENZA, TRIVALENT, ADJUVANTED [address] [facility] TDAP [address] [facility] INFLUENZA, TRIVALENT, ADJUVANTED [address] [facility] PNEUMOCOCCAL POLYSACCHARID E PPV23 [address] [facility] INFLUENZA, HIGH DOSE SEASONAL [address] [facility] PNEUMOCOCCAL CONJUGATE PCV [address] [facility] INFLUENZA, SEASONAL, INJECTABLE [address] [facility] ZOSTER LIVE [address] [facility] INFLUENZA, SEASONAL, INJECTABLE [address] [facility] TDAP [address] [facility] INFLUENZA, SEASONAL, INJECTABLE, PRESERVATIVE FREE [address] [facility] INFLUENZA, SEASONAL, INJECTABLE, PRESERVATIVE FREE [address] [facility] INFLUENZA, SEASONAL, INJECTABLE, PRESERVATIVE FREE [address] [facility] INFLUENZA, SEASONAL, INJECTABLE [address] [facility] INFLUENZA, SEASONAL, INJECTABLE [address] [facility] TD (ADULT), 2 LF TETANUS TOXOID, PRESERVATIVE FREE, ADSORBED [address] [facility] Results Combined list of recent chemistry, hematology and other laboratory results from Department of Defense and Veterans Affairs, ranging from 15 months to all on record, depending upon the facility. Order Name Results Value Reference Range Date Interpretation Specimen Comments Source HEMOGLOBI N A1C HEMOGLOBIN A1C/HEMOGLO BIN.TOTAL IN BLOOD 5.3 4.0 - 6.0 05/20 Specimen Type: BLOOD Comment: Values obtained from A1C measurement s can vary. For typical A1C assays, a reported value of 7.0 could actually be between 6.7 and 7.3 if measured by a reference method. A reported value of 9.0 could actually be between 8.7 and 9.3. Ref: http://www. ngsp.org/[place] Pdata.asp Ordering Provider: VALENTINE NORIEGA Report Released Date/Time: May 20, 2023 11:17 AM Reporting Lab: [facility] [address] Performing Lab: [facility] [address] [facility] BASIC METABOLIC PANEL+MG CREATININE [MASS/VOLUM E] IN SERUM OR PLASMA 1.2 0.7 - 1.2 05/20 Specimen Type: PLASMA No comment entered. Ordering Provider: VALENTINE NORIEGA Report Released Date/Time: May 20, 2023 11:17 AM Reporting Lab: [facility] [address] Performing Lab: [facility] [address] [facility] BASIC METABOLIC PANEL+MG UREA NITROGEN [MASS/VOLUM E] IN SERUM OR PLASMA 25 8 - 26 05/20 Specimen Type: PLASMA No comment entered. Ordering Provider: VALENTINE NORIEGA Report Released Date/Time: May 20, 2023 11:17 AM Reporting Lab: [facility] [address] Performing Lab: [facility] [address] [facility] BASIC METABOLIC PANEL+MG GLUCOSE [MASS/VOLUM E] IN SERUM OR PLASMA 100 70 - 100 05/20 Specimen Type: PLASMA No comment entered. Ordering Provider: VALENTINE NORIEGA Report Released Date/Time: May 20, 2023 11:17 AM Reporting Lab: [facility] [address] Performing Lab: [facility] [address] [facility] BASIC METABOLIC PANEL+MG SODIUM [MOLES/VOLU ME] IN SERUM OR PLASMA 134 136 - 145 05/20 L Specimen Type: PLASMA No comment entered. Ordering Provider: VALENTINE NORIEGA Report Released Date/Time: May 20, 2023 11:17 AM Reporting Lab: [facility] [address] Performing Lab: [facility] [address] [facility] BASIC METABOLIC PANEL+MG POTASSIUM [MOLES/VOLU ME] IN SERUM OR PLASMA 4.1 3.5 - 5.1 05/20 Specimen Type: PLASMA No comment entered. Ordering Provider: VALENTINE NORIEGA Report Released Date/Time: May 20, 2023 11:17 AM Reporting Lab: [facility] [address] Performing Lab: [facility] [address] [facility] BASIC METABOLIC PANEL+MG CHLORIDE [MOLES/VOLU ME] IN SERUM OR PLASMA 101 98 - 107 05/20 Specimen Type: PLASMA No comment entered. Ordering Provider: VALENTINE NORIEGA Report Released Date/Time: May 20, 2023 11:17 AM Reporting Lab: [facility] [address] Performing Lab: [facility] [address] [facility] BASIC METABOLIC PANEL+MG CARBON DIOXIDE, TOTAL [MOLES/VOLU ME] IN SERUM OR PLASMA 27 22 - 29 05/20 Specimen Type: PLASMA No comment entered. Ordering Provider: VALENTINE NORIEGA Report Released Date/Time: May 20, 2023 11:17 AM Reporting Lab: [facility] [address] Performing Lab: [facility] [address] [facility] BASIC METABOLIC PANEL+MG CALCIUM [MASS/VOLUM E] IN SERUM OR PLASMA 9.1 8.4 - 10.2 05/20 Specimen Type: PLASMA No comment entered. Ordering Provider: VALENTINE NORIEGA Report Released Date/Time: May 20, 2023 11:17 AM Reporting Lab: [facility] [address] Performing Lab: [facility] [address] [facility] BASIC METABOLIC PANEL+MG MAGNESIUM [MASS/VOLUM E] IN SERUM OR PLASMA 2.1 1.6 - 2.6 05/20 Specimen Type: PLASMA No comment entered. Ordering Provider: VALENTINE NORIEGA Report Released Date/Time: May 20, 2023 11:17 AM Reporting Lab: [facility] [address] Performing Lab: [facility] [address] [facility] BASIC METABOLIC PANEL+MG ANION GAP IN SERUM OR PLASMA 6 5 - 15 05/20 Specimen Type: PLASMA No comment entered. Ordering Provider: VALENTINE NORIEGA Report Released Date/Time: May 20, 2023 11:17 AM Reporting Lab: [facility] [address] Performing Lab: [facility] [address] [facility] BASIC METABOLIC PANEL+MG GLOMERULAR FILTRATION RATE/1.73 SQ M.PREDICTED [VOLUME RATE/AREA] IN SERUM, PLASMA OR BLOOD BY CREATININE- BASED FORMULA (CKD-EPI 2020) 63 60 05/20 Specimen Type: PLASMA No comment entered. Ordering Provider: VALENTINE NORIEGA Report Released Date/Time: May 20, 2023 11:17 AM Reporting Lab: [facility] [address] Performing Lab: [facility] [address] [facility] URINALYSI S COLOR OF URINE LIGHT-YE LLOW 11/19 Specimen Type: URINE No comment entered. Ordering Provider: VALENTINE NORIEGA Report Released Date/Time: Nov 20, 2021 08:47 AM Reporting Lab: [facility] [address] Performing Lab: [facility] [address] [facility] URINALYSI S SPECIFIC GRAVITY OF URINE 1.018 1.003 - 1.035 11/19 Specimen Type: URINE No comment entered. Ordering Provider: VALENTINE NORIEGA Report Released Date/Time: Nov 20, 2021 08:47 AM Reporting Lab: [facility] [address] Performing Lab: [facility] [address] [facility] URINALYSI S BILIRUBIN.T OTAL [PRESENCE] IN URINE BY TEST STRIP NEGATIVE 11/19 Specimen Type: URINE No comment entered. Ordering Provider: VALENTINE NORIEGA Report Released Date/Time: Nov 20, 2021 08:47 AM Reporting Lab: [facility] [address] Performing Lab: [facility] [address] [facility] URINALYSI S KETONES [MASS/VOLUM E] IN URINE BY TEST STRIP NEGATIVE 11/19 Specimen Type: URINE No comment entered. Ordering Provider: VALENTINE NORIEGA Report Released Date/Time: Nov 20, 2021 08:47 AM Reporting Lab: [facility] [address] Performing Lab: [facility] [address] [facility] URINALYSI S GLUCOSE [MASS/VOLUM E] IN URINE BY TEST STRIP NEGATIVE 11/19 Specimen Type: URINE No comment entered. Ordering Provider: VALENTINE NORIEGA Report Released Date/Time: Nov 20, 2021 08:47 AM Reporting Lab: [facility] [address] Performing Lab: [facility] [address] [facility] URINALYSI S PROTEIN [MASS/VOLUM E] IN URINE BY TEST STRIP 10 11/19 Specimen Type: URINE No comment entered. Ordering Provider: VALENTINE NORIEGA Report Released Date/Time: Nov 20, 2021 08:47 AM Reporting Lab: [facility] [address] Performing Lab: [facility] [address] [facility] URINALYSI S PH OF URINE BY TEST STRIP 5.0 5.0 - 8.0 11/19 Specimen Type: URINE No comment entered. Ordering Provider: VALENTINE NORIEGA Report Released Date/Time: Nov 20, 2021 08:47 AM Reporting Lab: [facility] [address] Performing Lab: [facility] [phone] [facility] URINALYSI S LEUKOCYTES [#/AREA] IN URINE SEDIMENT BY MICROSCOPY HIGH POWER FIELD <1 0 - 7 11/19 Specimen Type: URINE No comment entered. Ordering Provider: VALENTINE NORIEGA Report Released Date/Time: Nov 20, 2021 08:47 AM Reporting Lab: [facility] [address] Performing Lab: [facility] [address] [facility] URINALYSI S BACTERIA [PRESENCE] IN URINE SEDIMENT BY LIGHT MICROSCOPY NONE SEEN 11/19 Specimen Type: URINE No comment entered. Ordering Provider: VALENTINE NORIEGA Report Released Date/Time: Nov 20, 2021 08:47 AM Reporting Lab: [facility] [address] Performing Lab: [facility] [address] [facility] URINALYSI S ERYTHROCYTE S [#/AREA] IN URINE SEDIMENT BY MICROSCOPY HIGH POWER FIELD NONE SEEN 0 - 3 11/19 Specimen Type: URINE No comment entered. Ordering Provider: VALENTINE NORIEGA Report Released Date/Time: Nov 20, 2021 08:47 AM Reporting Lab: [facility] [address] Performing Lab: [facility] [address] [facility] URINALYSI S APPEARANCE OF URINE CLEAR 11/19 Specimen Type: URINE No comment entered. Ordering Provider: VALENTINE NORIEGA Report Released Date/Time: Nov 20, 2021 08:47 AM Reporting Lab: [facility] [phone] Performing Lab: [facility] [address] [facility] URINALYSI S EPITHELIAL CELLS.SQUAM OUS [#/AREA] IN URINE SEDIMENT BY MICROSCOPY HIGH POWER FIELD NONE SEEN 11/19 Specimen Type: URINE No comment entered. Ordering Provider: VALENTINE NORIEGA Report Released Date/Time: Nov 20, 2021 08:47 AM Reporting Lab: [facility] [address] Performing Lab: [facility] [address] [facility] URINALYSI S HEMOGLOBIN [PRESENCE] IN URINE BY TEST STRIP NEGATIVE 11/19 Specimen Type: URINE No comment entered. Ordering Provider: VALENTINE NORIEGA Report Released Date/Time: Nov 20, 2021 08:47 AM Reporting Lab: [facility] [address] Performing Lab: [facility] [address] [facility] URINALYSI S NITRITE [PRESENCE] IN URINE BY TEST STRIP NEGATIVE 11/19 Specimen Type: URINE No comment entered. Ordering Provider: VALENTINE NORIEGA Report Released Date/Time: Nov 20, 2021 08:47 AM Reporting Lab: [facility] [address] Performing Lab: [facility] [address] [facility] URINALYSI S LEUKOCYTE ESTERASE [PRESENCE] IN URINE BY TEST STRIP NEGATIVE 11/19 Specimen Type: URINE No comment entered. Ordering Provider: VALENTINE NORIEGA Report Released Date/Time: Nov 20, 2021 08:47 AM Reporting Lab: [facility] [address] Performing Lab: [facility] [address] [facility] MICROALBU MIN/CREAT ININE RATIO URINE CREATININE [MASS/VOLUM E] IN URINE 123.0 58.0 - 161.0 11/19 Specimen Type: URINE No comment entered. Ordering Provider: VALENTINE NORIEGA Report Released Date/Time: Nov 20, 2021 08:47 AM Reporting Lab: [facility] [address] Performing Lab: [facility] [address] [facility] MICROALBU MIN/CREAT ININE RATIO URINE MICROALBUMI N/CREATININ E [MASS RATIO] IN URINE 15.3 11/19 Specimen Type: URINE No comment entered. Ordering Provider: VALENTINE NORIEGA Report Released Date/Time: Nov 20, 2021 08:47 AM Reporting Lab: [facility] [phone] Performing Lab: [facility] [address] [facility] MICROALBU MIN/CREAT ININE RATIO URINE MICROALBUMI N [MASS/VOLUM E] IN URINE 18.8 11/19 Specimen Type: URINE No comment entered. Ordering Provider: VALENTINE NORIEGA Report Released Date/Time: Nov 20, 2021 08:47 AM Reporting Lab: [facility] [address] Performing Lab: [facility] [address] [facility] COMPREHEN SIVE METABOLIC PANEL+MG CREATININE [MASS/VOLUM E] IN SERUM OR PLASMA 1.0 0.7 - 1.2 11/19 Specimen Type: PLASMA No comment entered. Ordering Provider: VALENTINE NORIEGA Report Released Date/Time: Nov 19, 2022 10:52 AM Reporting Lab: [facility] [address] Performing Lab: [facility] [address] [facility] COMPREHEN SIVE METABOLIC PANEL+MG UREA NITROGEN [MASS/VOLUM E] IN SERUM OR PLASMA 17 8 - 26 11/19 Specimen Type: PLASMA No comment entered. Ordering Provider: VALENTINE NORIEGA Report Released Date/Time: Nov 19, 2022 10:52 AM Reporting Lab: [facility] [address] Performing Lab: [facility] [address] [facility] COMPREHEN SIVE METABOLIC PANEL+MG GLUCOSE [MASS/VOLUM E] IN SERUM OR PLASMA 98 70 - 100 11/19 Specimen Type: PLASMA No comment entered. Ordering Provider: VALENTINE NORIEGA Report Released Date/Time: Nov 19, 2022 10:52 AM Reporting Lab: [facility] [address] Performing Lab: [facility] [address] [facility] COMPREHEN SIVE METABOLIC PANEL+MG SODIUM [MOLES/VOLU ME] IN SERUM OR PLASMA 137 136 - 145 11/19 Specimen Type: PLASMA No comment entered. Ordering Provider: VALENTINE NORIEGA Report Released Date/Time: Nov 19, 2022 10:52 AM Reporting Lab: [facility] [address] Performing Lab: [facility] [address] [facility] COMPREHEN SIVE METABOLIC PANEL+MG POTASSIUM [MOLES/VOLU ME] IN SERUM OR PLASMA 4.0 3.5 - 5.1 11/19 Specimen Type: PLASMA No comment entered. Ordering Provider: VALENTINE NORIEGA Report Released Date/Time: Nov 19, 2022 10:52 AM Reporting Lab: [facility] [address] Performing Lab: [facility] [address] [facility] COMPREHEN SIVE METABOLIC PANEL+MG CHLORIDE [MOLES/VOLU ME] IN SERUM OR PLASMA 103 98 - 107 11/19 Specimen Type: PLASMA No comment entered. Ordering Provider: VALENTINE NORIEGA Report Released Date/Time: Nov 19, 2022 10:52 AM Reporting Lab: [facility] [address] Performing Lab: [facility] [address] [facility] COMPREHEN SIVE METABOLIC PANEL+MG CARBON DIOXIDE, TOTAL [MOLES/VOLU ME] IN SERUM OR PLASMA 25 22 - 29 11/19 Specimen Type: PLASMA No comment entered. Ordering Provider: VALENTINE NORIEGA Report Released Date/Time: Nov 19, 2022 10:52 AM Reporting Lab: [facility] [address] Performing Lab: [facility] [address] [facility] COMPREHEN SIVE METABOLIC PANEL+MG CALCIUM [MASS/VOLUM E] IN SERUM OR PLASMA 9.4 8.4 - 10.2 11/19 Specimen Type: PLASMA No comment entered. Ordering Provider: VALENTINE NORIEGA Report Released Date/Time: Nov 19, 2022 10:52 AM Reporting Lab: [facility] [address] Performing Lab: [facility] [address] [facility] COMPREHEN SIVE METABOLIC PANEL+MG PROTEIN [MASS/VOLUM E] IN SERUM OR PLASMA 6.8 6.0 - 8.3 11/19 Specimen Type: PLASMA No comment entered. Ordering Provider: VALENTINE NORIEGA Report Released Date/Time: Nov 19, 2022 10:52 AM Reporting Lab: [facility] [address] Performing Lab: [facility] [address] [facility] COMPREHEN SIVE METABOLIC PANEL+MG ALBUMIN [MASS/VOLUM E] IN SERUM OR PLASMA 3.9 3.5 - 5.2 11/19 Specimen Type: PLASMA No comment entered. Ordering Provider: VALENTINE NORIEGA Report Released Date/Time: Nov 19, 2022 10:52 AM Reporting Lab: [facility] [address] Performing Lab: [facility] [address] [facility] COMPREHEN SIVE METABOLIC PANEL+MG BILIRUBIN.T OTAL [MASS/VOLUM E] IN SERUM OR PLASMA 0.5 0.2 - 1.2 11/19 Specimen Type: PLASMA No comment entered. Ordering Provider: VALENTINE NORIEGA Report Released Date/Time: Nov 19, 2022 10:52 AM Reporting Lab: [facility] [address] Performing Lab: [facility] [address] [facility] COMPREHEN SIVE METABOLIC PANEL+MG MAGNESIUM [MASS/VOLUM E] IN SERUM OR PLASMA 2.0 1.6 - 2.6 11/19 Specimen Type: PLASMA No comment entered. Ordering Provider: VALENTINE NORIEGA Report Released Date/Time: Nov 19, 2022 10:52 AM Reporting Lab: [facility] [address] Performing Lab: [facility] [address] [facility] COMPREHEN SIVE METABOLIC PANEL+MG ANION GAP IN SERUM OR PLASMA 9 5 - 15 11/19 Specimen Type: PLASMA No comment entered. Ordering Provider: VALENTINE NORIEGA Report Released Date/Time: Nov 19, 2022 10:52 AM Reporting Lab: [facility] [address] Performing Lab: [facility] [address] [facility] COMPREHEN SIVE METABOLIC PANEL+MG ALKALINE PHOSPHATASE [ENZYMATIC ACTIVITY/VO LUME] IN SERUM OR PLASMA 65 40 - 150 11/19 Specimen Type: PLASMA No comment entered. Ordering Provider: VALENTINE NORIEGA Report Released Date/Time: Nov 19, 2022 10:52 AM Reporting Lab: [facility] [address] Performing Lab: [facility] [address] [facility] COMPREHEN SIVE METABOLIC PANEL+MG ALANINE AMINOTRANSF ERASE [ENZYMATIC ACTIVITY/VO LUME] IN SERUM OR PLASMA 17 11/19 Specimen Type: PLASMA No comment entered. Ordering Provider: VALENTINE NORIEGA Report Released Date/Time: Nov 19, 2022 10:52 AM Reporting Lab: [facility] [address] Performing Lab: [facility] [address] [facility] COMPREHEN SIVE METABOLIC PANEL+MG ASPARTATE AMINOTRANSF ERASE [ENZYMATIC ACTIVITY/VO LUME] IN SERUM OR PLASMA 20 11/19 Specimen Type: PLASMA No comment entered. Ordering Provider: VALENTINE NORIEGA Report Released Date/Time: Nov 19, 2022 10:52 AM Reporting Lab: [facility] [address] Performing Lab: [facility] [address] [facility] COMPREHEN SIVE METABOLIC PANEL+MG GLOMERULAR FILTRATION RATE/1.73 SQ M.PREDICTED [VOLUME RATE/AREA] IN SERUM, PLASMA OR BLOOD BY CREATININE- BASED FORMULA (CKD-EPI 2020) 79 11/19 Specimen Type: PLASMA No comment entered. Ordering Provider: VALENTINE NORIEGA Report Released Date/Time: Nov 19, 2022 10:52 AM Reporting Lab: [facility] [address] Performing Lab: [facility] [address] [facility] CBC & DIFF LEUKOCYTES [#/VOLUME] IN BLOOD BY AUTOMATED COUNT 6.73 4.0 - 11.0 11/19 Specimen Type: BLOOD Comment: Automated Differentia l Performed Ordering Provider: VALENTINE NORIEGA Report Released Date/Time: Nov 19, 2022 10:52 AM Reporting Lab: [facility] [address] Performing Lab: [facility] [address] [facility] CBC & DIFF ERYTHROCYTE S [#/VOLUME] IN BLOOD BY AUTOMATED COUNT 4.46 4.6 - 6.2 11/19 L Specimen Type: BLOOD Comment: Automated Differentia l Performed Ordering Provider: VALENTINE NORIEGA Report Released Date/Time: Nov 19, 2022 10:52 AM Reporting Lab: [facility] [address] Performing Lab: [facility] [address] [facility] CBC & DIFF HEMOGLOBIN [MASS/VOLUM E] IN BLOOD 14.5 13.5 - 17.9 11/19 Specimen Type: BLOOD Comment: Automated Differentia l Performed Ordering Provider: VALENTINE NORIEGA Report Released Date/Time: Nov 19, 2022 10:52 AM Reporting Lab: [facility] [id number] Performing Lab: [facility] [id number] [facility] CBC & DIFF HEMATOCRIT [VOLUME FRACTION] OF BLOOD BY AUTOMATED COUNT 43.4 41 - 54 11/19 Specimen Type: BLOOD Comment: Automated Differentia l Performed Ordering Provider: VALENTINE NORIEGA Report Released Date/Time: Nov 19, 2022 10:52 AM Reporting Lab: [facility] [id number] Performing Lab: [facility] [id number] [facility] CBC & DIFF MCV [ENTITIC VOLUME] BY AUTOMATED COUNT 97.3 80 - 100 11/19 Specimen Type: BLOOD Comment: Automated Differentia l Performed Ordering Provider: VALENTINE NORIEGA Report Released Date/Time: Nov 19, 2022 10:52 AM Reporting Lab: [facility] [address] Performing Lab: [facility] [address] [facility] CBC & DIFF MCH [ENTITIC MASS] BY AUTOMATED COUNT 32.5 27 - 33 11/19 Specimen Type: BLOOD Comment: Automated Differentia l Performed Ordering Provider: VALENTINE NORIEGA Report Released Date/Time: Nov 19, 2022 10:52 AM Reporting Lab: [facility] [address] Performing Lab: [facility] [address] [facility] CBC & DIFF MCHC [MASS/VOLUM E] BY AUTOMATED COUNT 33.4 32.0 - 37.5 11/19 Specimen Type: BLOOD Comment: Automated Differentia l Performed Ordering Provider: VALENTINE NORIEGA Report Released Date/Time: Nov 19, 2022 10:52 AM Reporting Lab: [facility] [address] Performing Lab: [facility] [address] [facility] CBC & DIFF PLATELETS [#/VOLUME] IN BLOOD BY AUTOMATED COUNT 285 150 - 400 11/19 Specimen Type: BLOOD Comment: Automated Differentia l Performed Ordering Provider: VALENTINE NORIEGA Report Released Date/Time: Nov 19, 2022 10:52 AM Reporting Lab: [facility] [address] Performing Lab: [facility] [address] [facility] CBC & DIFF PLATELET MEAN VOLUME [ENTITIC VOLUME] IN BLOOD BY AUTOMATED COUNT 9.5 7.4 - 10.4 11/19 Specimen Type: BLOOD Comment: Automated Differentia l Performed Ordering Provider: VALENTINE NORIEGA Report Released Date/Time: Nov 19, 2022 10:52 AM Reporting Lab: [facility] [address] Performing Lab: [facility] [address] [facility] CBC & DIFF NEUTROPHILS /100 LEUKOCYTES IN BLOOD BY MANUAL COUNT 56.0 11/19 Specimen Type: BLOOD Comment: Automated Differentia l Performed Ordering Provider: VALENTINE NORIEGA Report Released Date/Time: Nov 19, 2022 10:52 AM Reporting Lab: [facility] [address] Performing Lab: [facility] [address] [facility] CBC & DIFF LYMPHOCYTES /100 LEUKOCYTES IN BLOOD BY MANUAL COUNT 27.8 11/19 Specimen Type: BLOOD Comment: Automated Differentia l Performed Ordering Provider: VALENTINE NORIEGA Report Released Date/Time: Nov 19, 2022 10:52 AM Reporting Lab: [facility] [address] Performing Lab: [facility] [address] [facility] CBC & DIFF MONOCYTES/1 00 LEUKOCYTES IN BLOOD BY AUTOMATED COUNT 11.4 11/19 Specimen Type: BLOOD Comment: Automated Differentia l Performed Ordering Provider: VALENTINE NORIEGA Report Released Date/Time: Nov 19, 2022 10:52 AM Reporting Lab: [facility] [address] Performing Lab: [facility] [address] [facility] CBC & DIFF EOSINOPHILS /100 LEUKOCYTES IN BLOOD BY AUTOMATED COUNT 3.7 11/19 Specimen Type: BLOOD Comment: Automated Differentia l Performed Ordering Provider: VALENTINE NORIEGA Report Released Date/Time: Nov 19, 2022 10:52 AM Reporting Lab: [facility] [address] Performing Lab: [facility] [address] [facility] CBC & DIFF BASOPHILS/1 00 LEUKOCYTES IN BLOOD BY MANUAL COUNT 0.7 11/19 Specimen Type: BLOOD Comment: Automated Differentia l Performed Ordering Provider: VALENTINE NORIEGA Report Released Date/Time: Nov 19, 2022 10:52 AM Reporting Lab: [facility] [address] Performing Lab: [facility] [address] [facility] CBC & DIFF ERYTHROCYTE DISTRIBUTIO N WIDTH [RATIO] BY AUTOMATED COUNT 12.5 11.5 - 14.5 11/19 Specimen Type: BLOOD Comment: Automated Differentia l Performed Ordering Provider: VALENTINE NORIEGA Report Released Date/Time: Nov 19, 2022 10:52 AM Reporting Lab: [facility] [address] Performing Lab: [facility] [address] [facility] CBC & DIFF LYMPHOCYTES [#/VOLUME] IN BLOOD BY AUTOMATED COUNT 1.87 1.0 - 4.0 11/19 Specimen Type: BLOOD Comment: Automated Differentia l Performed Ordering Provider: VALENTINE NORIEGA Report Released Date/Time: Nov 19, 2022 10:52 AM Reporting Lab: [facility] [address] Performing Lab: [facility] [address] [facility] CBC & DIFF MONOCYTES [#/VOLUME] IN BLOOD BY AUTOMATED COUNT 0.77 0.1 - 1.0 11/19 Specimen Type: BLOOD Comment: Automated Differentia l Performed Ordering Provider: VALENTINE NORIEGA Report Released Date/Time: Nov 19, 2022 10:52 AM Reporting Lab: [facility] [address] Performing Lab: [facility] [address] [facility] CBC & DIFF NEUTROPHILS [#/VOLUME] IN BLOOD BY AUTOMATED COUNT 3.76 2.0 - 7.7 11/19 Specimen Type: BLOOD Comment: Automated Differentia l Performed Ordering Provider: VALENTINE NORIEGA Report Released Date/Time: Nov 19, 2022 10:52 AM Reporting Lab: [facility] [address] Performing Lab: [facility] [address] [facility] CBC & DIFF EOSINOPHILS [#/VOLUME] IN BLOOD BY AUTOMATED COUNT 0.25 0 - 0.5 11/19 Specimen Type: BLOOD Comment: Automated Differentia l Performed Ordering Provider: VALENTINE NORIEGA Report Released Date/Time: Nov 19, 2022 10:52 AM Reporting Lab: [facility] [address] Performing Lab: [facility] [address] [facility] CBC & DIFF BASOPHILS [#/VOLUME] IN BLOOD BY AUTOMATED COUNT 0.05 0 - 0.2 11/19 Specimen Type: BLOOD Comment: Automated Differentia l Performed Ordering Provider: VALENTINE NORIEGA Report Released Date/Time: Nov 19, 2022 10:52 AM Reporting Lab: [facility] [address] Performing Lab: [facility] [address] [facility] CBC & DIFF IG(META,MYE LO,PRO) 0.4 11/19 Specimen Type: BLOOD Comment: Automated Differentia l Performed Ordering Provider: VALENTINE NORIEGA Report Released Date/Time: Nov 19, 2022 10:52 AM Reporting Lab: [facility] [address] Performing Lab: [facility] [address] [facility] CBC & DIFF IMMATURE GRANULOCYTE S [PRESENCE] IN BLOOD BY AUTOMATED COUNT 0.03 0 - 0.1 11/19 Specimen Type: BLOOD Comment: Automated Differentia l Performed Ordering Provider: VALENTINE NORIEGA Report Released Date/Time: Nov 19, 2022 10:52 AM Reporting Lab: [facility] [address] Performing Lab: [facility] [address] [facility] C-REACTIV E PROTEIN C REACTIVE PROTEIN [MASS/VOLUM E] IN SERUM OR PLASMA BY HIGH SENSITIVITY METHOD 0.93 11/19 Specimen Type: PLASMA No comment entered. Ordering Provider: VALENTINE NORIEGA Report Released Date/Time: Nov 19, 2022 10:52 AM Reporting Lab: [facility] [address] Performing Lab: [facility] [address] [facility] HEMOGLOBI N A1C HEMOGLOBIN A1C/HEMOGLO BIN.TOTAL IN BLOOD 5.3 4.0 - 6.0 11/19 Specimen Type: BLOOD Comment: Values obtained from A1C measurement s can vary. For typical A1C assays, a reported value of 7.0 could actually be between 6.7 and 7.3 if measured by a reference method. A reported value of 9.0 could actually be between 8.7 and 9.3. Ref: http://www. ngsp.org/[place] Pdata.asp Ordering Provider: VALENTINE NORIEGA Report Released Date/Time: Nov 19, 2022 10:52 AM Reporting Lab: [facility] [address] Performing Lab: [facility] [address] [facility] TSH W/REFLEX TO FREE T4 THYROTROPIN [UNITS/VOLU ME] IN SERUM OR PLASMA 0.89 0.35 - 4.94 11/19 Specimen Type: PLASMA No comment entered. Ordering Provider: VALENTINE NORIEGA Report Released Date/Time: Nov 19, 2022 10:52 AM Reporting Lab: [facility] [address] Performing Lab: [facility] [address] [facility] LIPID PANEL,NON -FASTING CHOLESTEROL [MASS/VOLUM E] IN SERUM OR PLASMA 164 11/19 Specimen Type: PLASMA No comment entered. Ordering Provider: VALENTINE NORIEGA Report Released Date/Time: Nov 19, 2022 10:52 AM Reporting Lab: [facility] [address] Performing Lab: [facility] [address] [facility] CBVALARIE LIPID PANEL,NON -FASTING CHOLESTEROL IN HDL [MASS/VOLUM E] IN SERUM OR PLASMA 50 11/19 Specimen Type: PLASMA No comment entered. Ordering Provider: VALENTINE NORIEGA Report Released Date/Time: Nov 19, 2022 10:52 AM Reporting Lab: [facility] [address] Performing Lab: [facility] [address] [facility] LIPID PANEL,NON -FASTING CHOLESTEROL IN LDL [MASS/VOLUM E] IN SERUM OR PLASMA BY CALCULATION 97 11/19 Specimen Type: PLASMA No comment entered. Ordering Provider: VALENTINE NORIEGA Report Released Date/Time: Nov 19, 2022 10:52 AM Reporting Lab: [facility] [address] Performing Lab: [facility] [address] [facility] LIPID PANEL,NON -FASTING CHOLESTEROL IN VLDL [MASS/VOLUM E] IN SERUM OR PLASMA BY CALCULATION 17 11/19 Specimen Type: PLASMA No comment entered. Ordering Provider: VALENTINE NORIEGA Report Released Date/Time: Nov 19, 2022 10:52 AM Reporting Lab: [facility] [address] Performing Lab: [facility] [address] [facility] LIPID PANEL,NON -FASTING CHOLESTEROL NON HDL [MASS/VOLUM E] IN SERUM OR PLASMA 114 11/19 Specimen Type: PLASMA No comment entered. Ordering Provider: VALENTINE NORIEGA Report Released Date/Time: Nov 19, 2022 10:52 AM Reporting Lab: [facility] [address] Performing Lab: [facility] [address] [facility] LIPID PANEL,NON -FASTING TRIGLYCERID E [MASS/VOLUM E] IN SERUM OR PLASMA 86 11/19 Specimen Type: PLASMA No comment entered. Ordering Provider: VALENTINE NORIEGA Report Released Date/Time: Nov 19, 2022 10:52 AM Reporting Lab: [facility] [address] Performing Lab: [facility] [address] [facility] Vital Signs Combined list of inpatient and outpatient Vital Signs from Department of Defense and Veterans Affairs, ranging from 12 months to all on record, depending upon the facility. Vital Sign Value Date Comments Source Encounters Combined list of: 1) Encounters from Department of Veterans Affairs facilities going back up to thelast 18 months. 2) Encounters from the Department of Defense facilities going back up to 280 months. Location Location Details Encounter Type Encounter Number Reason For Visit Attending Provider ADM Date DC Date Status Disposition Source [place] [facility] Outpatient Encounter [id number] 08/14 [facility] OFFICE O/P EST HI 40-54 MIN [id number] Diagnos is: ICD-10- CM M06.9 Rheumat oid arthrit is, unspeci fied
HARICO NNIE M 11/19 [facility] [place] [facility] Outpatient Encounter [id number] TIARA MORGAN RK R 11/21 [facility] [place] [facility] Outpatient Encounter [id number] 12/24 [facility] [place] [facility] Outpatient Encounter [id number] 12/25 [facility] [place] [facility] Outpatient Encounter [id number] 12/25 [facility] [place] [facility] Outpatient Encounter [id number] 12/26 [facility] [place] [facility] HEARING AID FITTING/CH ECKING [id number] Diagnos is: ICD-10- CM Z46.1 Encount er for fitting and adjustm ent of hearing aid<br/ > TIARA KING RTHA R 01/10 [facility] IMMUNIZATI ON ADMIN [id number] Diagnos is: ICD-10- CM Z23 Encount er for immuniz ation<b r/> Colton DO 02/13 [facility] [place] [facility] HEARING AID REPAIR/MOD IFYING [id number] Diagnos is: ICD-10- CM Z46.1 Encount er for fitting and adjustm ent of hearing aid<br/ > TIARA KING RTHA R 03/03 [facility] [place] [facility] Outpatient Encounter [id number] [facility] [place] [facility] Outpatient Encounter [id number] RUBÉN,AN NATHALIE 05/20 [facility] OFFICE O/P EST MOD 30 MIN [id number] Diagnos is: ICD-10- CM C18.9 Maligna nt neoplas m of colon, unspeci fied
GRANDIA,CO NNIE M 05/20 [facility] [place] [facility] Outpatient Encounter [id number] 06/11 [facility] [place] [facility] Outpatient Encounter [id number] 06/12 [facility] Social History Combined list of available smoking, tobacco, and other social history from Department of Defense and [facility] Affairs facilities. Social History Type Response Date Comment [facility] e Tobacco smoking status [facility] NEVER USED 11/19/2022 [facility] [place] of tobacco use [place] NEVER US[place] 12/05/2020 [facility] of [facility]2019 [facility]
--- OUTSIDE RECORDS SUMMARY | 2023-08-28 09:15 | XMS_ITS | Encounter Summary ---
Author Name Department of Vetera Affairs Organization Department of Vetera [facility] Address [address] [place] [address] Support Name Relationship Address Phone JASPREET STEELE Next of Kin [address] [phone] JASPREET STEELE Emergency Contact [address] [...] Name Patient's Relationship to Policy Joe HUMANA [facility] (WNR) MEDICARE ADVANTAGE [facility] (R) May 12, 2021 [id number] [phone] TRAY STEELE PATIENT MEDICA MCR (WNR) MEDICARE ADVANTAGE [facility] (WNR) May 12, 2018 [id number] TRAY STEELE PATIENT MEDICARE (WNR) MEDICARE (M) PART A Jul 10, 2013 PART A [id number] [phone] TRAY STEELE PATIENT MEDICARE (WNR) MEDICARE (M) PART B Jul 10, 2013 PART B [id number] TRAY STEELE PATIENT Selected Encounter This section includes the information on record at [place] for the Encounter. Date/Time Encounter Type Encounter Description Reason Pro vider Source Jun 12, 2023 03:03 PM Outpatient Encounter EVENT (HISTORICAL) IHE Encounter Template Text not used by [place] Plan of Treatment: Future Appointments (+ 6 months) and Future Tests (+/- 45 days) The Plan of Treatment section includes future care activities for the patient from all [facility]. This section includes future appointments and future orders which are active, pending or scheduled. Future Appointments This section includes appointments that were scheduled to occur 6 months from the date of the Encounter, up to a maximum of 20 appointments. The data comes from all [facility]. Appointment Date/Time Appointment Type Appointme nt Facility Name Aug 26, 2023 07:00 AM AMBULATORY - NONE [facility] Active, Pending, and Scheduled Orders This section includes a listing of several types of active, pending, and scheduled orders, including clinic medications orders, diagnostic test orders, procedure orders and consult orders; where the start date of the order is 45 days before the date of the Encounter or 45 days after the date of theEncounter. The data comes from all [facility]. Test Date/Time Test Type Test Details Facility Name May 20, 2023 11:12 AM Consult Order [facility] Cons Experimental Mechanic Electrical's Choice [facility] Lab Results: +/- 30 days of the encounter This section includes the Chemistry and Hematology Lab Results on record with [place] for the patient. Radiology Reports and Pathology [...] May 20, 2023 11:17 AM Reporting Lab: [facility] [address] Performing Lab: [facility] [address] HEMOGLOBIN A1C 5.3 4.0-6.0 May 20, 2023 11:22 AM [facility] BASIC METABOLIC PANEL+MG Specimen Type: PLASMA No comment entered. Ordering Provider: SHERYL NORIEGA Report Released Date/Time: May 20, 2023 11:17 AM Reporting Lab: [facility] [address] Performing Lab: [facility] [address] CREATININE 1.2 0.7-1.2 UREA NITROGEN 25 8-26 [...] and tobacco- related health factors from the [place] facility where the Encounter took place. Current Smoking Status This section includes the most current smoking, or tobacco-related health factor, from the [place] facility where the Encounter took place. Date/Time Current Smoking Status Comment Yuli restrepo Nov 29, 2019 09:36 AM [facility]-TO[facility]ACCO NEVER USED [facility]
--- OUTSIDE RECORDS SUMMARY | 2023-08-28 09:15 | XMS_ITS | Encounter Summary ---
Author Name Department of Vetera Affairs Organization Department of Vetera Affairs Address [address] [place] [address] Support Name Relationship Address Phone JASPREET STEELE Next of Kin [address] [address] JASPREET STEELE Emergency Contact [address] [...] Name Patient's Relationship to Policy Joe HUMANA [facility] (WNR) MEDICARE ADVANTAGE [facility] ([facility]) May 12, 2021 [id number] [phone] TRAY STEELE PATIENT MEDICA [facility] (WNR) MEDICARE ADVANTAGE [facility] (WNR) May 12, 2018 [id number] TRAY STEELE PATIENT MEDICARE (WNR) MEDICARE (M) PART B Jul 10, 2013 PART B [id number] TRAY STEELE PATIENT MEDICARE (WNR) MEDICARE (M) PART A Jul 10, 2013 PART A [id number] TRAY STEELE PATIENT Selected Encounter This section includes the information on record at [facility] for the Encounter. Date/Time Encounter Type Encounter Description Reason Provider Source May 20, 2023 10:15 AM Outpatient Encounter [facility]MEDICINE [facility] [place] Encounter Template Text not used by CT Plan of Treatment: Future Appointments (+ 6 months) and Future Tests (+/- 45 days) The Plan of Treatment section includes future care activities for the patient from all [facility]. This section includes future appointments and future orders which are active, pending or scheduled. Future Appointments This section includes appointments that were scheduled to occur 6 months from the date of the Encounter, up to a maximum of 20 appointments. The data comes from all [facility]. Appointment Date/Time Appointment Type Appointme nt Facility Name Aug 26, 2023 07:00 AM [facility] Active, Pending, and Scheduled Orders This section includes a listing of several types of active, pending, and scheduled orders, including clinic medications orders, diagnostic test orders, procedure orders and consult orders; where the start date of the order is 45 days before the date of the Encounter or 45 days after the date of theEncounter. The data comes from all [facility]. Test Date/Time Test Type Test Details Facility Name May 20, 2023 11:12 AM Consult Order [facility] Cons Data Collection Technician's Choice [facility] Lab Results: +/- 30 days of the encounter This section includes the Chemistry and Hematology Lab Results on record with CT for the patient. Radiology Reports and Pathology [...] May 20, 2023 11:17 AM Reporting Lab: [facility] [address] Performing Lab: [facility] [address] HEMOGLOBIN A1C 5.3 4.0-6.0 May 20, 2023 11:22 AM [facility] BASIC METABOLIC PANEL+MG Specimen Type: PLASMA No comment entered. Ordering Provider: SHERYL NORIEGA Report Released Date/Time: May 20, 2023 11:17 AM Reporting Lab: [facility] [address] Performing Lab: [facility] [address] CREATININE 1.2 0.7-1.2 UREA NITROGEN 25 8-26 [...] and tobacco- related health factors from the [place] facility where the Encounter took place. Current Smoking Status This section includes the most current smoking, or tobacco-related health factor, from the [place] facility where the Encounter took place. Date/Time Current Smoking Status Comment Facil ity Nov 29, 2019 09:36 AM VA-TOBACCO NEVER USED [facility] Encounter Notes: All associated encounter notes This section contains the clinical notes associated to the Encounter. Date/Time Encounter Note(s) Provider Source May 20, 2023 10:15 AM ADVANCE DIRECTIVE: LOCAL TITLE: AD NOTIFICATION AND SCREENING STANDARD TITLE: ADVANCE DIRECTIVE DATE OF NOTE: MAY 20, 2023@10:15 ENTRY DATE: MAY 20, 2023@10:15:50 AUTHOR: ANTONIO MANCERA COSIGNER: URGENCY: STATUS: COMPLETED ADVANCE DIRECTIVE NOTIFICATION: Patient was given written notification of the following rights: 1. Accept or refuse any medical treatment. 2. Complete a durable power of bankruptcy attorney for health care. 3. Complete a living will. ADVANCE DIRECTIVE SCREENING: Does patient have an Advance Directive? The patient has an Advance Directive. Does the patient wish to make any changes or revoke their current Advance Directive? Yes, the patient has an Advance Directive, but it is not in the medical record. [place] was asked to obtain a copy for their medical record. /katharina/ ANTONIO Dickson [facility] Signed: 05/20/2023 10:16 ANTONIO MANCERA [facility]
--- OUTSIDE RECORDS SUMMARY | 2023-08-28 09:15 | XMS_ITS ---
Author Name Unknown Organization [facility] Address [address] [place] [address] Care Team Providers Care Ingot Stripper Name Role Phone Unavailable Unavailable Unavailable Surgery Details Not on file Complications Check Surgery Details section. Procedure Estimated Blood Loss Check Surgery Details section. Procedure Findings Check Surgery Details section. Procedure Specimens Taken Check Surgery Details section.
--- OUTSIDE RECORDS SUMMARY | 2023-08-28 09:15 | XMS_ITS | Clinical Summary ---
Author Name Unknown Organization [facility] Address [address] [place] [address] Care Team Providers Care Formula Bottler Name Role Phone Unavailable Primary Care Provider Unavailabl e Source Comments You are receiving this document as you are listed as the primary care provider,follow-up provider, or the patient has been referred to you for consultation.This is in compliance with the Medicare and[facility] EHR Incentive Program,which states Providers who transition their patient to another setting of careor provider of care or refers their patient to another provider of care shouldprovide summary care record for each transition of care or referral. Elemental Cyber Security Allergies No known active allergies Medications Medication Sig Dispensed Refills Start Date End Date Status lisinopril (ZESTRIL) 2.5 MG tablet Take 2.5 mg by mouth daily. Active tamsulosin (FLOMAX) 0.4 MG CAPS capsule Take 0.4 mg by mouth daily. Active OMEPRAZOLE OR Active fluticasone propionate (FLONASE) 50 MCG/ACT nasal solution Place 2 Sprays into both nostrils daily. 2 sprays in evening Active Multiple Vitamin (MULTIVITAMINS OR) Active Calcium Carbonate Antacid (CALCIUM CARBONATE OR) Active POTASSIUM CHLORIDE OR Act jeff Multiple Vitamins-Minerals (OCUVITE PRESERVISION OR) Active folic Acid 800 MCG tablet Take 1 Tablet by mouth daily. 90 Tablet 3 11/24/2019 Active methotrexate 2.5 MG tablet Take 10 Tablets (25 mg) by mouth once every week. 5 tabs in am and 5 tabs in pm one day each week 120 Tablet 1 12/13/2021 Active Cholecalciferol (VITAMIN D-3) 125 MCG (5000 UT) TABS Take 125 mcg by mouth daily. 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 Social History Tobacco Use Types Packs/Day Years Used Date Smoking Tobacco: Never Smokeless Tobacco: Never Alcohol Use Standard Drinks/Week Comments Never 0 (1 standard drink = 0.6 oz pur e alcohol) Sex and Gender Information Value Date Recorded Sex Assigned at Not on file Gender Identity Not on file Sexual Orientation Not on file Last Filed Vital Signs Vital Sign Reading Time Taken Comments Blood Pressure 119/74 10/25/2021 2:11 PM CDT Pulse 111 10/25/2021 2:11 PM CDT Temperature 36.4 ??C (97.5 ??F) 04/28/2020 8:16 AM CS T Respiratory Rate - - Oxygen Saturation - - Inhaled Oxygen Concentration - - Weight 97.1 kg (214 lb) 10/25/2021 2:11 PM CDT Height 172 cm (5' 7.72) 11/24/2019 2:39 PM CDT Body Mass Index 32.81 11/24/2019 2:39 PM CDT Plan of Treatment Health Maintenance Due Date Last Done Comments Colon Cancer Screening Plan Due 1950 Hep C Screening (Preventive Services) 1950 Medicare Welcome Visit 1950 Zoster/Shingles (2 of 3) 06/09/2012 04/14/2012 COVID-19 Vaccine ( season) 2023 Influenza (#1) 2023 02/10/2018, 1010/2016, 06/24/2014, Additional history exists DTaP/Tdap/Td (3 - Tdap) 04/12/2028 04/12/20 18, 03/10/2012, 06/24/2003 Pneumococcal 65+ Yrs Completed 08/25/2015, 06/24/19 15 HepA Aged Out No longer eligi ble based on patient's age to complete this topic HepB Aged Out No longer eligi ble based on patient's age to complete this topic Hib Aged Out No longer eligi ble based on patient's age to complete this topic IPV (Polio) Aged Out No longer eligi ble based on patient's age to complete this topic MCV4 Aged Out No longer eligi ble based on patient's age to complete this topic
--- NOTE | 2023-08-28 10:27 | P.ANES_ITS ---
Anesthesia Charges Start Date/Time Anesthesia Start Date: 08/28/23 Anesthesia Start Time: 09:50 Stop Date/Time Anesthesia Stop Date: 08/28/23 Anesthesia Stop Time: 10:28 Summary Extremes of Age - Over 70 or under 1: [employer]
--- NOTE | 2023-08-28 10:37 | W.ANESCHARGE ---
Anesthesia Charges Start Date/Time Anesthesia Start Date: 08/28/23 Anesthesia Start Time: 09:50 Stop Date/Time Anesthesia Stop Date: 08/28/23 Anesthesia Stop Time: 10:28 Summary Extremes of Age - Over 70 or under 1: MDA
== END 2023-08-28 09:11 | disposition home or self-care (01) ==
LOC: OP CLINIC 09:13
PROVIDERS: PCP Family Medicine; Visit Provider Surgery
DX: K63.5 Polyp of colon (principal); K57.30 Diverticulosis of large intestine without perforation or abscess without bleeding; Z86.010 Personal history of colon polyps; Z98.0 Intestinal bypass and anastomosis status
CPT/HCPCS: 00811; 45385; 88305; 99100; J2704